=== PATIENT | female | born 1950 | race Caucasian/White ===

== ENCOUNTER 2017-04-17 06:50 | Emergency (ER) | payer MEDICARE, OTHER ==
[2017-04-17] MEDS ORDERED: Ondansetron 4 MG/2 ML SDV IVPUSH ONE (07:41)
--- NOTE | 2017-04-17 07:42 | EDM.PDOC ---
ED HPI GENERAL MEDICAL PROBLEM - General Chief Complaint: Abdominal Pain Stated Complaint: MID STOMACH PAIN Time Seen by Provider: 04/17/17 07:42 Source of Information: Reports: Patient History Limitations: Reports: No Limitations - History of Present Illness INITIAL COMMENTS - FREE TEXT/NARRATIVE: pt woke up this am with very sharp severe pain in the epigastric and rt upper abdoman. She did not vomit but she does feel nauseated at this time. She has had a concern about her gb in the past. She does do alot of belching after eating. Onset: Today, Other ( started early this am. ) Duration: Hour(s): Location: Reports: Abdomen Associated Symptoms: Reports: Nausea/Vomiting, Other ( burning epigastric pain) abdominal Pain Score (Numeric/FACES): 4 - Related Data Allergies Allergy/AdvReac Type Severity Reaction Status Date / Time hydroxyzine HCl Allergy Unknown Verified 04/17/17 07:09 [From Vistaril] hydroxyzine pamoate Allergy Unknown Verified 04/17/17 07:09 [From Vistaril] meperidine HCl [From Demerol] Allergy Unknown Verified 04/17/17 07:09 morphine Allergy Unknown Verified 04/17/17 07:09 pentazocine [From Talwin] Allergy Anxiety Verified 04/17/17 07:09 novacaine Allergy Unknown Uncoded 04/17/17 07:09 Home Meds: Home Meds Alprazolam 2.5 mg PO TID PRN 05/16/13 [History] Folic Acid 4 mg PO DAILY 05/16/13 [History] Methotrexate Sodium 0.6 mg PO WEEKLY 05/16/13 [History] Metoprolol Tartrate 150 mg PO DAILY 05/16/13 [History] Mometasone Furoate 1 applic TOP DAILY 05/16/13 [History] Aspirin 81 mg PO DAILY 04/17/17 [History] Cholecalciferol (Vitamin D3) [Vitamin D3] 2,000 unit PO DAILY 04/17/17 [History] busPIRone [Buspar] 10 mg PO BID 04/17/17 [History] Past Medical History HEENT History: Reports: Impaired Vision Cardiovascular History: Reports: Hypertension Gastrointestinal History: Reports: Other (See Below) Other Gastrointestinal History: gassy Musculoskeletal History: Reports: Arthritis, RA Neurological History: Reports: Migraines Other Neuro History: anxiety Psychiatric History: Reports: Anxiety Immunologic History: Reports: Immunosuppression Dermatologic History: Reports: Other (See Below) Other Dermatologic History: rosacea - Infectious Disease History Infectious Disease History: Reports: Chicken Pox, Measles, Mumps - Past Surgical History GI Surgical History: Reports: Appendectomy Social & Family History - Family History Family Medical History: Noncontributory Cardiac: Reports: Other (See Below) Other Cardiac Family History: rapid heart beat repaired in sister - takes medicine for it - Tobacco Use Smoking Status *Q: Never Smoker Years of Tobacco use: 5 Used Tobacco, but Quit: Yes Month Tobacco Last Used: 1978 Second Hand Smoke Exposure: No - Caffeine Use Caffeine Use: Reports: None - Recreational Drug Use Recreational Drug Use: No ED ROS GENERAL - Review of Systems Review Of Systems: See Below Constitutional: Reports: No Symptoms HEENT: Reports: No Symptoms Respiratory: Reports: No Symptoms Cardiovascular: Reports: No Symptoms Endocrine: Reports: No Symptoms GI/Abdominal: Reports: Abdominal Pain, Other (Pt has pain in the epigastric area. ) : Reports: No Symptoms Musculoskeletal: Reports: No Symptoms Skin: Reports: No Symptoms Neurological: Reports: No Symptoms ED EXAM, GI/ABD - Physical Exam Exam: See Below Text/Narrative:: pt arrived very tender in the epigastric area. She developed acute pain early this am. She was very nauseated but she did not vomit. She has been doing alot ogf belching after eating. Exam Limited By: No Limitations General Appearance: Alert, Anxious Ears: Normal TMs Nose: Normal Inspection Throat/Mouth: Normal Inspection Head: Atraumatic Neck: Normal Inspection Respiratory/Chest: No Respiratory Distress Cardiovascular: Regular Rate, Rhythm GI/Abdominal Exam: Soft, Tender, Other (pt is tender in the epigastric area. ) (Female) Exam: Deferred Rectal (Female) Exam: Deferred Back Exam: Normal Inspection Extremities: Normal Inspection Neurological: Alert, Oriented, Normal Cognition Course - Vital Signs Last Recorded V/S: Last Vital Signs Temp 36.2 C 04/17/17 07:14 Pulse 60 04/17/17 10:29 Resp 12 04/17/17 10:29 BP 116/56 L 04/17/17 10:29 Pulse Ox 98 04/17/17 10:29 - Orders/Labs/Meds Orders: Active Orders 24 hr Category Date Time Status EKG Documentation Completion [RC] ASDIRECTED Care 04/17/17 07:41 Active Sodium Chloride 0.9% [Normal Saline] 1,000 ml Med 04/17/17 07:45 Active IV ASDIRECTED EKG 12 Lead [EK] Routine Ther 04/17/17 07:41 Ordered Medication Orders Sodium Chloride (Normal Saline) 1,000 mls @ 999 mls/hr IV ASDIRECTED SHILPA Last Admin: 04/17/17 08:28 Dose: 999 mls/hr Labs: Laboratory Tests 04/17/17 04/17/17 04/17/17 Range/Units 07:45 07:45 07:45 WBC 6.0 (4.5-11.0) K/uL RBC 4.52 (3.30-5.50) M/uL Hgb 13.1 (12.0-15.0) g/dL Hct 40.3 (36.0-48.0) % MCV 89 (80-98) fL MCH 29 (27-31) pg MCHC 33 (32-36) % Plt Count 167 (150-400) K/uL Neut % (Auto) 79 H (36-66) % Lymph % (Auto) 13 L (24-44) % [place] % (Auto) 7 H (2-6) % Eos % (Auto) 1 L (2-4) % Baso % (Auto) 0 (0-1) % Sodium 142 (140-148) mmol/L Potassium 3.7 (3.6-5.2) mmol/L Chloride 107 (100-108) mmol/L Carbon Dioxide 27 (21-32) mmol/L Anion Gap 8.1 (5.0-14.0) mmol/L BUN 17 (7-18) mg/dL Creatinine 0.8 (0.6-1.0) mg/dL Est Cr Clr Drug Dosing 56.45 mL/min Estimated GFR (MDRD) > 60 (>60) Glucose 105 (74-106) mg/dL Calcium 8.9 (8.5-10.1) mg/dL Total Bilirubin 0.4 (0.2-1.0) mg/dL AST 19 (15-37) U/L ALT 25 (12-78) U/L Alkaline Phosphatase 70 (46-116) U/L Troponin I < 0.017 (0.000-0.056) ng/mL Total Protein 6.6 (6.4-8.2) g/dL Albumin 3.4 (3.4-5.0) g/dL Globulin 3.2 (2.3-3.5) g/dL Albumin/Globulin Ratio 1.1 L (1.2-2.2) Lipase 83 (73-393) U/L Urine Color Urine Appearance Urine pH (4.5-8.0) Ur Specific [place] (1.008-1.030) Urine Protein (NEGATIVE) mg/dL Urine Glucose (UA) (NEGATIVE) mg/dL Urine Ketones (NEGATIVE) mg/dL Urine Occult Blood (NEGATIVE) Urine Nitrite (NEGATIVE) Urine Bilirubin (NEGATIVE) Urine Urobilinogen (NORMAL) mg/dL Ur Leukocyte Esterase (NEGATIVE) Urine RBC (0-5) Urine WBC (0-5) Ur Epithelial Cells Amorphous Sediment Urine Bacteria Urine Mucus 04/17/17 Range/Units 08:22 WBC (4.5-11.0) K/uL RBC (3.30-5.50) M/uL Hgb (12.0-15.0) g/dL Hct (36.0-48.0) % MCV (80-98) fL MCH (27-31) pg MCHC (32-36) % Plt Count (150-400) K/uL Neut % (Auto) (36-66) % Lymph % (Auto) (24-44) % [place] % (Auto) (2-6) % Eos % (Auto) (2-4) % Baso % (Auto) (0-1) % Sodium (140-148) mmol/L Potassium (3.6-5.2) mmol/L Chloride (100-108) mmol/L Carbon Dioxide (21-32) mmol/L Anion Gap (5.0-14.0) mmol/L BUN (7-18) mg/dL Creatinine (0.6-1.0) mg/dL Est Cr Clr Drug Dosing mL/min Estimated GFR (MDRD) (>60) Glucose (74-106) mg/dL Calcium (8.5-10.1) mg/dL Total Bilirubin (0.2-1.0) mg/dL AST (15-37) U/L ALT (12-78) U/L Alkaline Phosphatase (46-116) U/L Troponin I (0.000-0.056) ng/mL Total Protein (6.4-8.2) g/dL Albumin (3.4-5.0) g/dL Globulin (2.3-3.5) g/dL Albumin/Globulin Ratio (1.2-2.2) Lipase (73-393) U/L Urine Color Yellow Urine Appearance Clear Urine pH 5.0 (4.5-8.0) Ur Specific [place] 1.005 L (1.008-1.030) Urine Protein Negative (NEGATIVE) mg/dL Urine Glucose (UA) Normal (NEGATIVE) mg/dL Urine Ketones Negative (NEGATIVE) mg/dL Urine Occult Blood Negative (NEGATIVE) Urine Nitrite Negative (NEGATIVE) Urine Bilirubin Negative (NEGATIVE) Urine Urobilinogen Normal (NORMAL) mg/dL Ur Leukocyte Esterase Negative (NEGATIVE) Urine RBC Not seen (0-5) Urine WBC Not seen (0-5) Ur Epithelial Cells Rare Amorphous Sediment Not seen Urine Bacteria Not seen Urine Mucus Not seen Meds: Medications Generic Name Dose Route Start Last Admin Trade Name Freq PRN Reason Stop Dose Admin Sodium Chloride 1,000 mls @ 999 mls/hr 04/17/17 07:45 04/17/17 08:28 Normal Saline IV 999 mls/hr ASDIRECTED SHILPA Administration Discontinued Medications Generic Name Dose Route Start Last Admin Trade Name Freq PRN Reason Stop Dose Admin Al Hydroxide/Mg Hydroxide 15 0 ml 04/17/17 09:21 04/17/17 09:36 ml/ Lidocaine HCl 15 ml PO 04/17/17 09:22 15 ml ONETIME ONE Administration Ondansetron HCl 4 mg 04/17/17 07:41 04/17/17 08:29 Zofran IVPUSH 04/17/17 07:42 4 mg ONETIME ONE Administration Pantoprazole Sodium 40 mg 04/17/17 10:05 04/17/17 10:27 Protonix Iv IVPUSH 04/17/17 10:06 40 mg ONETIME ONE Administration - Re-Assessments/Exams Free Text/Narrative Re-Assessment/Exam: 04/17/17 10:39 pt was given protonix and a gi cocktail. Her pain is down to a 1 or 2. She had a us of her gb which was neg. Her lab work looked good. Departure - Departure Time of Disposition: 10:40 Disposition: Home, Self-Care 01 Condition: Fair Clinical Impression: GERD (gastroesophageal reflux disease) - Discharge Information Referrals: Holly Ponce CNM [Primary Care Provider] - Forms: ED Department Discharge Care Plan Goals: rtc for a gastro, protonix 20 mg bid for the next week, avoid eating late at nite. rtc if further severe symptoms. - My Orders Last 24 Hours: My Active Orders 04/17/17 07:41 EKG Documentation Completion [RC] ASDIRECTED EKG 12 Lead [EK] Routine 04/17/17 07:45 Sodium Chloride 0.9% [Normal Saline] 1,000 ml IV ASDIRECTED - Assessment/Plan Last 24 Hours: My Active Orders 04/17/17 07:41 EKG Documentation Completion [RC] ASDIRECTED EKG 12 Lead [EK] Routine 04/17/17 07:45 Sodium Chloride 0.9% [Normal Saline] 1,000 ml IV ASDIRECTED
[2017-04-17] MEDS ORDERED: Sodium Chloride 0.9% 1,000 ML IV SCH (07:45)
[2017-04-17] MEDS ORDERED: Alum Hydrox/Mag Hydrox/Simeth 15 ML, Lidocaine 2% 15 ML PO ONE ×2 (09:21)
[2017-04-17] MEDS ORDERED: Pantoprazole 40 MG Vial IVPUSH ONE (10:05)
--- NOTE | 2017-04-17 10:23 | US ---
Ultrasound RUQ There are 2 cysts involving the right lobe the liver. The largest measures 2.4 cm in diameter. No avelino id lesions. The gallbladder demonstrates no stones or inflammation. There is no pain with palpation o verlying the gallbladder. The common bile duct measures within normal limits measuring 3 mm. The visu alized portions of the pancreas are unremarkable. The right kidney is normal in size. There is no hyd ronephrosis. There are no stones seen. The abdominal aorta and IVC are unremarkable. Impression: 1. Hepatic cysts. 2. No acute findings.
[2017-04-17 10:30] VITALS: BP 116/56
== END 2017-04-17 11:02 | disposition home or self-care (01) ==
LOC: JP.ED 06:50
DX: K21.9 Gastro-esophageal reflux disease without esophagitis (principal); I10 Essential (primary) hypertension; Z88.8 Allergy status to other drugs, medicaments and biological substances; Z88.5 Allergy status to narcotic agent; Z79.899 Other long term (current) drug therapy
CPT/HCPCS: 36415; 76705; 80053; 81001; 83690; 84484; 85025; 93005; 96361; 96374; 96375; 99285; A9270; C9113; J2405; J7040; 93010

== ENCOUNTER 2017-04-21 08:06 | Day surgery (SDC) | payer MEDICARE, OTHER ==
[2017-04-21] MEDS ORDERED: Propofol 200 MG/20 ML SDV ONE (08:43)
[2017-04-21] MEDS ORDERED: Midazolam 1 MG/ML 2 ML SDV ONE (08:43)
[2017-04-21] MEDS ORDERED: fentaNYL 100 MCG/2 ML SDV ONE (08:43)
[2017-04-21] MEDS ORDERED: Sodium Chloride 0.9% 1,000 ML IV SCH (09:00)
[2017-04-21 10:58] VITALS: BP 115/47
--- NOTE | 2017-04-24 09:18 | OR ---
DATE OF PROCEDURE: 04/21/2017 PROCEDURE: EGD. FINDINGS: 1. Inflammation at the GE junction consistent with reflux disease. 2. Inflammation of the distal antrum consistent with gastritis. 3. Biopsies of #1 and #2. 4. No evidence of old or new blood. COMPLICATIONS: None. ORTHOPEDICS PEDIATRIC PHYSICIAN: None. ANESTHESIA: MAC. RISKS: Risks, benefits, alternatives, and limitations including, but not limited to infection, bleeding, and perforation were explained to the patient, they wished to proceed. PROCEDURE IN DETAIL: The patient was placed in a left lateral decubitus position. The EGD scope was introduced and advanced atraumatically to the second part of the duodenum. The scope was brought back and retroflexed. There was a very small hiatal hernia. In the gastric antrum, there was inflammation consistent with reflux disease. This was biopsied multiple times using cold biopsy forceps. The GE junction also showed inflammation and a tongue-like appearance consistent with reflux. This was biopsied multiple times using cold biopsy forceps. The esophagus was normal, inflammation, very mild gastritis, mild reflux, but no definitive etiology of any bleeding or explanation for pain. The patient tolerated the procedure well. Deng Cueto MD /[id number]
== END 2017-04-21 11:52 | disposition home or self-care (01) ==
LOC: JP.SDS 08:06
PROVIDERS: ATTEND Surgery
DX: K29.70 Gastritis, unspecified, without bleeding (principal); K21.0 Gastro-esophageal reflux disease with esophagitis; K44.9 Diaphragmatic hernia without obstruction or gangrene; I10 Essential (primary) hypertension; Z88.8 Allergy status to other drugs, medicaments and biological substances
CPT/HCPCS: 43239; 88305; J2250; J2704; J3010; J7040; J7030

== ENCOUNTER 2017-10-19 22:54 | Emergency (ER) | payer MEDICARE, OTHER ==
--- NOTE | 2017-10-19 23:48 | EDM.PDOC ---
ED HPI GENERAL MEDICAL PROBLEM - General Chief Complaint: Lower Extremity Injury/Pain Stated Complaint: stubbed toe and ripped off nail on left foot Time Seen by Provider: 10/19/17 23:21 Source of Information: Reports: Patient History Limitations: Reports: No Limitations - History of Present Illness INITIAL COMMENTS - FREE TEXT/NARRATIVE: Left second toe injury.. This is a 67-year-old female presents emergency room after tripping or slipping in her home meds stubbed her toe which caused an injury to the toenail. Denies any other concerns Onset: Sudden Duration: Hour(s): Location: Reports: Other (Toenail injury) Quality: Reports: Ache Severity: Mild Improves with: Reports: None Worsens with: Reports: Movement Context: Reports: Other (Fall or tripping home) Associated Symptoms: Reports: No Other Symptoms Treatments ENOLOGIST: Reports: Dressing(s) denies pain Pain Score (Numeric/FACES): 0 - Related Data Allergies Allergy/AdvReac Type Severity Reaction Status Date / Time amoxicillin Allergy Abdominal Verified 10/19/17 23:53 Cramps hydroxyzine HCl Allergy Unknown Verified 10/19/17 23:51 [From Vistaril] hydroxyzine pamoate Allergy Unknown Verified 10/19/17 23:51 [From Vistaril] meperidine HCl [From Demerol] Allergy Unknown Verified 10/19/17 23:51 metronidazole Allergy Cannot Verified 10/19/17 23:51 Remember morphine Allergy Unknown Verified 10/19/17 23:51 procaine [From Novocain] Allergy Cannot Verified 10/19/17 23:51 Remember pentazocine [From Talwin] AdvReac Anxiety Verified 10/19/17 23:51 Home Meds: Home Meds Alprazolam 2.5 mg PO TID PRN 05/16/13 [History] Folic Acid 400 mg PO DAILY 05/16/13 [History] Methotrexate Sodium 0.6 mg PO WEEKLY 05/16/13 [History] Metoprolol Tartrate 100 mg PO DAILY 05/16/13 [History] Mometasone Furoate 1 applic TOP DAILY 05/16/13 [History] Aspirin 81 mg PO DAILY 04/17/17 [History] Cholecalciferol (Vitamin D3) [Vitamin D3] 2,000 unit PO DAILY 04/17/17 [History] busPIRone [Buspar] 10 mg PO BID 04/17/17 [History] Montelukast [Singulair] 10 mg PO DAILY 04/18/17 [History] Metoprolol Tartrate 50 mg PO BEDTIME 04/21/17 [History] Past Medical History HEENT History: Reports: Impaired Vision Cardiovascular History: Reports: Hypertension Respiratory History: Reports: Pneumonia, Recurrent Gastrointestinal History: Reports: Other (See Below) Other Gastrointestinal History: gassy [employer]IT[employer] History: Reports: Musculoskeletal History: Reports: Arthritis, RA Neurological History: Reports: Migraines Other Neuro History: anxiety Psychiatric History: Reports: Anxiety Immunologic History: Reports: Immunosuppression Dermatologic History: Reports: Other (See Below) Other Dermatologic History: rosacea - Infectious Disease History Infectious Disease History: Reports: Chicken Pox, Measles, Mumps - Past Surgical History GI Surgical History: Reports: Appendectomy Social & Family History - Family History Family Medical History: Noncontributory Cardiac: Reports: Other (See Below) Other Cardiac Family History: rapid heart beat repaired in sister - takes medicine for it - Caffeine Use Caffeine Use: Reports: None Review of Systems - Review of Systems Review Of Systems: See Below Constitutional: Reports: No Symptoms Musculoskeletal: Reports: Foot Pain (Left second toe injury/pain) Skin: Reports: Other (Toenail injury) Neurological: Reports: No Symptoms Psychiatric: Reports: No Symptoms ED EXAM, GENERAL - Physical Exam Exam: See Below Exam Limited By: No Limitations General Appearance: Alert, WD/WN, No Apparent Distress Extremities: Other (Left second toe injury, partial avulsion of the toenail, toe range of motion intact without pain or tenderness.) Neurological: No Motor/Sensory Deficits Psychiatric: Normal Affect, Normal Mood Skin Exam: Other (Left second toenail with bleeding at base of the nail avulsion. this has been controlled with bandage) Lymphatic: No Adenopathy Course - Vital Signs Last Recorded V/S: Last Vital Signs Temp 35.7 C 10/19/17 23:54 Pulse 58 L 10/19/17 23:54 Resp 14 10/19/17 23:54 BP 157/65 H 10/19/17 23:54 Pulse Ox 95 10/19/17 23:54 - Orders/Labs/Meds Meds: Medications Discontinued Medications Generic Name Dose Route Start Last Admin Trade Name Freq PRN Reason Stop Dose Admin Bacitracin 1 dose 10/20/17 00:31 10/20/17 00:41 Bacitracin Oint 1 Gm TOP 10/20/17 00:32 1 dose ONETIME ONE Administration - Re-Assessments/Exams Free Text/Narrative Re-Assessment/Exam: 10/20/17 01:09 patient declines x-rays at this time, will give Keflex 500 by mouth twice a day for infection prevention as patient is immune compromised due to her rheumatoid arthritis. Bandage applied discussed wound care, signs and symptoms of infection, and to follow-up with primary care for recheck. Patient agrees with plan of care Departure - Departure Time of Disposition: 00:29 Disposition: Home, Self-Care 01 Condition: Good Clinical Impression: She Nail avulsion of toe Qualifiers: Encounter type: initial encounter Qualified Code(s): S91.209A - Unspecified open wound of unspecified toe(s) with damage to nail, initial encounter - Discharge Information *PRESCRIPTION DRUG MONITORING PROGRAM REVIEWED*: Yes *COPY OF PRESCRIPTION DRUG MONITORING REPORT IN PATIENT JOSR: Yes Instructions: Nail Bed Injury Referrals: Holly Ponce CNM [Primary Care Provider] - Forms: ED Department Discharge Care Plan Goals: Nail Avulsion -take Keflex 500mg one po in morning and evening til gone -take Diflucon 150mg now and repeat in 7 days apply bacitracin ointment to toe one to two times a day follow up in Primary Care for recheck return to ER or Urgent Care for any signs of infection or not improved - Problem List & Annotations (1) Nail avulsion of toe SNOMED Code(s): 771001723 Code(s): S91.209A - UNSP OPEN WOUND OF UNSP TOE(S) W DAMAGE TO NAIL, INIT ENCNTR Status: Acute Priority: High Qualifiers: Encounter type: initial encounter Qualified Code(s): S91.209A - Unspecified open wound of unspecified toe(s) with damage to nail, initial encounter - Problem List Review Problem List Initiated/Reviewed/Updated: Yes - Assessment/Plan Plan: Nail Avulsion -take Keflex 500mg one po in morning and evening til gone -take Diflucon 150mg now and repeat in 7 days apply bacitracin ointment to toe one to two times a day follow up in Primary Care for recheck return to ER or Urgent Care for any signs of infection or not improved
[2017-10-19 23:55] VITALS: BP 157/65
[2017-10-20] MEDS ORDERED: Bacitracin Oint 1 GM U/D Packet TOP ONE (00:31)
[2017-10-20] MEDS ORDERED: Bacitracin Oint 1 GM U/D Packet ONE (00:35)
== END 2017-10-20 00:49 | disposition home or self-care (01) ==
LOC: JP.ED 22:54
DX: S91.205A Unspecified open wound of left lesser toe(s) with damage to nail, initial encounter (principal); I10 Essential (primary) hypertension; M06.9 Rheumatoid arthritis, unspecified; Z88.1 Allergy status to other antibiotic agents; Z88.5 Allergy status to narcotic agent; W18.40XA Slipping, tripping and stumbling without falling, unspecified, initial encounter
CPT/HCPCS: 99283

== ENCOUNTER 2018-06-04 14:17 | Emergency (ER) | payer MEDICARE, OTHER ==
--- NOTE | 2018-06-04 15:26 | EDM.PDOC ---
ED HPI GENERAL MEDICAL PROBLEM - General Chief Complaint: Abdominal Pain Stated Complaint: LOWER ABD PAIN Time Seen by Provider: 06/04/18 15:26 Source of Information: Reports: Patient History Limitations: Reports: No Limitations - History of Present Illness INITIAL COMMENTS - FREE TEXT/NARRATIVE: pt arrived with pain in the rt lower abdoman. In Nov she had a partial hysterectomy and a bladder suspension. She has not had dsyuria. She has been on the constipated side. Onset: Today, Sudden Duration: Hour(s): Location: Reports: Abdomen Associated Symptoms: Reports: No Other Symptoms lower abdominal Pain Score (Numeric/FACES): 8 - Related Data Allergies Allergy/AdvReac Type Severity Reaction Status Date / Time amoxicillin Allergy Abdominal Verified 06/04/18 14:57 Cramps hydroxyzine HCl Allergy Unknown Verified 06/04/18 14:57 [From Vistaril] hydroxyzine pamoate Allergy Unknown Verified 06/04/18 14:57 [From Vistaril] meperidine HCl [From Demerol] Allergy Unknown Verified 06/04/18 14:57 metronidazole Allergy Cannot Verified 06/04/18 14:57 Remember morphine Allergy Unknown Verified 06/04/18 14:57 procaine [From Novocain] Allergy Cannot Verified 06/04/18 14:57 Remember pentazocine [From Talwin] AdvReac Anxiety Verified 06/04/18 14:57 Home Meds: Home Meds Alprazolam 2.5 mg PO TID PRN 05/16/13 [History] Folic Acid 400 mg PO DAILY 05/16/13 [History] Methotrexate Sodium 0.6 mg PO WEEKLY 05/16/13 [History] Mometasone Furoate 1 applic TOP DAILY 05/16/13 [History] Aspirin 81 mg PO DAILY 04/17/17 [History] Cholecalciferol (Vitamin D3) [Vitamin D3] 2,000 unit PO DAILY 04/17/17 [History] busPIRone [Buspar] 10 mg PO BID 04/17/17 [History] Montelukast [Singulair] 10 mg PO DAILY 04/18/17 [History] Metoprolol Tartrate 100 mg PO DAILY 04/21/17 [History] Tiotropium [Spiriva] 18 mcg INH DAILY 06/04/18 [History] Past Medical History HEENT History: Reports: Impaired Vision Cardiovascular History: Reports: Hypertension Respiratory History: Reports: Pneumonia, Recurrent Gastrointestinal History: Reports: GERD, Other (See Below) Other Gastrointestinal History: gassy 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: Musculoskeletal History: Reports: Arthritis, RA Other Musculoskeletal History: toenail removed July 2016 left foot 2nd toe Neurological History: Reports: Migraines Other Neuro History: anxiety Psychiatric History: Reports: Anxiety, Panic Attack Immunologic History: Reports: Immunosuppression Dermatologic History: Reports: Other (See Below) Other Dermatologic History: rosacea - Infectious Disease History Infectious Disease History: Reports: Chicken Pox, Measles, Mumps - Past Surgical History GI Surgical History: Reports: Appendectomy Female Surgical History: Reports: Hysterectomy, Other (See Below) Other Female Surgeries/Procedures: partial hysterectomy and bladder sling Musculoskeletal Surgical History: Reports: None Social & Family History - Family History Family Medical History: Noncontributory Cardiac: Reports: Other (See Below) Other Cardiac Family History: rapid heart beat repaired in sister - takes medicine for it - Tobacco Use Smoking Status *Q: Never Smoker - Caffeine Use Caffeine Use: Reports: None - Recreational Drug Use Recreational Drug Use: No ED ROS GENERAL - Review of Systems Review Of Systems: See Below Constitutional: Reports: No Symptoms HEENT: Reports: No Symptoms Respiratory: Reports: No Symptoms Cardiovascular: Reports: No Symptoms Endocrine: Reports: No Symptoms GI/Abdominal: Reports: Abdominal Pain, Other (pt had a sudden onset of a severe episode of rt sided abdomanal pin. She has been on the constipated side. She did not vomit. ) : Reports: No Symptoms Musculoskeletal: Reports: No Symptoms Skin: Reports: No Symptoms Neurological: Reports: No Symptoms ED EXAM, RENAL/ - Physical Exam Exam: See Below Text/Narrative:: pt had an episode of very severe pain in the rt lower abdoman. She has not vomited . The pain is muich better now then it was earlier. Exam Limited By: No Limitations General Appearance: Alert, Anxious, Moderate Distress Ears: Normal TMs Nose: Normal Inspection Throat/Mouth: Normal Inspection Head: Atraumatic Neck: Normal Inspection Respiratory/Chest: No Respiratory Distress Cardiovascular: Regular Rate, Rhythm GI/Abdominal: Other (mild tenderness) (Female) Exam: Deferred Rectal (Female) Exam: Deferred Back Exam: CVA Tenderness (L) Extremities: Normal Inspection Neurological: Alert, Oriented, Normal Cognition Course - Vital Signs Last Recorded V/S: Last Vital Signs Temp 35.5 C 06/04/18 14:51 Pulse 88 06/04/18 17:31 Resp 12 06/04/18 17:31 BP 142/61 H 06/04/18 17:31 Pulse Ox 96 06/04/18 17:31 - Orders/Labs/Meds Labs: Laboratory Tests 06/04/18 06/04/18 06/04/18 Range/Units 15:25 15:33 15:33 WBC 4.1 L (4.5-11.0) K/uL RBC 4.19 (3.30-5.50) M/uL Hgb 12.2 (12.0-15.0) g/dL Hct 36.9 (36.0-48.0) % MCV 88 (80-98) fL MCH 29 (27-31) pg MCHC 33 (32-36) % Plt Count 166 (150-400) K/uL Neut % (Auto) 63 (36-66) % Lymph % (Auto) 22 L (24-44) % [place] % (Auto) 11 H (2-6) % Eos % (Auto) 3 (2-4) % Baso % (Auto) 1 (0-1) % Sodium 142 (140-148) mmol/L Potassium 3.6 (3.6-5.2) mmol/L Chloride 106 (100-108) mmol/L Carbon Dioxide 27 (21-32) mmol/L Anion Gap 9.5 (5.0-14.0) mmol/L BUN 11 (7-18) mg/dL Creatinine 0.7 (0.6-1.0) mg/dL Est Cr Clr Drug Dosing 63.63 mL/min Estimated GFR (MDRD) > 60 (>60) Glucose 89 (74-106) mg/dL Calcium 8.9 (8.5-10.1) mg/dL Total Bilirubin 0.5 (0.2-1.0) mg/dL AST 21 (15-37) U/L ALT 29 (12-78) U/L Alkaline Phosphatase 74 (46-116) U/L C-Reactive Protein (0.0-0.3) mg/dL Total Protein 6.7 (6.4-8.2) g/dL Albumin 3.2 L (3.4-5.0) g/dL Globulin 3.5 (2.3-3.5) g/dL Albumin/Globulin Ratio 0.9 L (1.2-2.2) Urine Color Yellow Urine Appearance Clear Urine pH 7.0 (4.5-8.0) Ur Specific [place] 1.005 L (1.008-1.030) Urine Protein Negative (NEGATIVE) mg/dL Urine Glucose (UA) Normal (NEGATIVE) mg/dL Urine Ketones Negative (NEGATIVE) mg/dL Urine Occult Blood Negative (NEGATIVE) Urine Nitrite Negative (NEGATIVE) Urine Bilirubin Negative (NEGATIVE) Urine Urobilinogen Normal (NORMAL) mg/dL Ur Leukocyte Esterase Negative (NEGATIVE) Urine RBC 0-5 (0-5) Urine WBC 0-5 (0-5) Ur Epithelial Cells Rare Amorphous Sediment Rare Urine Bacteria Not seen Urine Mucus Not seen 06/04/18 Range/Units 15:33 WBC (4.5-11.0) K/uL RBC (3.30-5.50) M/uL Hgb (12.0-15.0) g/dL Hct (36.0-48.0) % MCV (80-98) fL MCH (27-31) pg MCHC (32-36) % Plt Count (150-400) K/uL Neut % (Auto) (36-66) % Lymph % (Auto) (24-44) % [place] % (Auto) (2-6) % Eos % (Auto) (2-4) % Baso % (Auto) (0-1) % Sodium (140-148) mmol/L Potassium (3.6-5.2) mmol/L Chloride (100-108) mmol/L Carbon Dioxide (21-32) mmol/L Anion Gap (5.0-14.0) mmol/L BUN (7-18) mg/dL Creatinine (0.6-1.0) mg/dL Est Cr Clr Drug Dosing mL/min Estimated GFR (MDRD) (>60) Glucose (74-106) mg/dL Calcium (8.5-10.1) mg/dL Total Bilirubin (0.2-1.0) mg/dL AST (15-37) U/L ALT (12-78) U/L Alkaline Phosphatase (46-116) U/L C-Reactive Protein 0.27 (0.0-0.3) mg/dL Total Protein (6.4-8.2) g/dL Albumin (3.4-5.0) g/dL Globulin (2.3-3.5) g/dL Albumin/Globulin Ratio (1.2-2.2) Urine Color Urine Appearance Urine pH (4.5-8.0) Ur Specific [place] (1.008-1.030) Urine Protein (NEGATIVE) mg/dL Urine Glucose (UA) (NEGATIVE) mg/dL Urine Ketones (NEGATIVE) mg/dL Urine Occult Blood (NEGATIVE) Urine Nitrite (NEGATIVE) Urine Bilirubin (NEGATIVE) Urine Urobilinogen (NORMAL) mg/dL Ur Leukocyte Esterase (NEGATIVE) Urine RBC (0-5) Urine WBC (0-5) Ur Epithelial Cells Amorphous Sediment Urine Bacteria Urine Mucus Meds: Medications Discontinued Medications Generic Name Dose Route Start Last Admin Trade Name Freq PRN Reason Stop Dose Admin Sodium Chloride 80 mls @ 3 mls/sec 06/04/18 17:45 Normal Saline IV ASDIRECTED ON LICENSE OF [facility] Iopamidol 100 ml 06/04/18 17:45 Isovue-300 (61%) IV . DIRECTED ON LICENSE OF [facility] Magnesium Citrate 296 ml 06/04/18 18:59 Citrate Of Magnesia PO 06/04/18 19:00 ONETIME ONE Sodium Chloride 10 ml 06/04/18 17:44 Saline Flush FLUSH ASDIRECTED PRN Keep Vein Open - Re-Assessments/Exams Free Text/Narrative Re-Assessment/Exam: 06/04/18 19:01 pt had a normal urine. Her wbc was normal. Because of how severe the pain was a cat scan of the abdoman was done which was neg except for constipation. 06/05/18 07:22 Departure - Departure Time of Disposition: 19:02 Disposition: Home, Self-Care 01 Condition: Fair Clinical Impression: Constipation - Discharge Information Instructions: Constipation, Adult, [id number] Referrals: Holly Ponce CNM [Primary Care Provider] - Forms: ED Department Discharge Care Plan Goals: drink the mag citrate now. Increase fiber in diet, eat prunes daily, use fiber gummy 3-4 daily to keep stool soft.
[2018-06-04 17:32] VITALS: BP 142/61
[2018-06-04] MEDS ORDERED: Sodium Chloride 0.9% 10 ML Syringe FLUSH PRN (17:44)
[2018-06-04] MEDS ORDERED: Sodium Chloride 0.9% 80 ML IV SCH (17:45)
[2018-06-04] MEDS ORDERED: Iopamidol 612 MG/ML 100 ML Bottle IV SCH (17:45)
--- NOTE | 2018-06-04 18:28 | CRLCT ---
Indication: Right lower quadrant pain. Technique: Multiple contiguous axial images were obtained from the lung bases through the symphysis pubis without intravenous contrast enhancement. Please note that all CT scans at this facility use dose modulation, iterative reconstruction, and/or weight-based dosing when appropriate to reduce radiation dose to as low as reasonably achievable. Comparison: None Findings: The lung bases are clear. No infiltrate, pleural effusion, or pneumothorax is identified. Heart is normal in size. No pericardial effusion is identified. Multiple hepatic cysts are identified. No intrahepatic biliary ductal dilatation is identified. The gallbladder, spleen, pancreas, adrenals are grossly normal. No hydronephrosis is identified on the left. Right hydronephrosis is identified. No renal calculus is identified. No right hydroureter is identified. No right ureteral stones are seen. In the pelvis, the urinary bladder is normal. The uterus has been removed. The small and large bowel are normal in caliber. Moderate amount of stool is identified within the colon. No free air or free fluid is identified within the abdomen or pelvis. Degenerative changes of the spine are seen. No lytic or blastic lesions are identified. Impression: Mild right hydronephrosis without evidence of renal/ureteral calculi. No hydroureter. Please note that all CT scans at this facility use dose modulation, iterative reconstruction, and/or weight-based dosing when appropriate to reduce radiation dose to as low as reasonably achievable. Dictated by Sarah Barbour MD @ Jun 04 2018 6:23PM Signed by Dr. Sarah Barbour @ Jun 04 2018 6:26PM
[2018-06-04] MEDS ORDERED: Magnesium Citrate Solution 296 ML Bottle PO ONE (18:59)
== END 2018-06-04 19:21 | disposition home or self-care (01) ==
LOC: JP.ED 14:17
DX: K59.00 Constipation, unspecified (principal); I10 Essential (primary) hypertension; F41.9 Anxiety disorder, unspecified; K21.9 Gastro-esophageal reflux disease without esophagitis; Z79.899 Other long term (current) drug therapy; Z88.8 Allergy status to other drugs, medicaments and biological substances; Z88.1 Allergy status to other antibiotic agents; Z88.5 Allergy status to narcotic agent; Z88.6 Allergy status to analgesic agent
CPT/HCPCS: 36415; 74176; 80053; 81001; 85025; 86140; 99284-25

== ENCOUNTER 2019-08-26 07:11 | Day surgery (SDC) | payer MEDICARE, OTHER ==
[2019-08-26] MEDS ORDERED: fentaNYL 100 MCG/2 ML SDV ONE (07:22)
[2019-08-26] MEDS ORDERED: Midazolam 1 MG/ML 2 ML SDV ONE (07:23)
[2019-08-26] MEDS ORDERED: Propofol 200 MG/20 ML SDV ONE (07:23)
[2019-08-26] MEDS ORDERED: Sodium Chloride 0.9% 1,000 ML IV SCH (07:45)
[2019-08-26 10:25] VITALS: BP 101/66; PULSE 54
--- NOTE | 2019-08-27 09:09 | OR ---
DATE OF PROCEDURE: 08/26/2019 SURGEON: Deng Cueto MD PROCEDURE: Colonoscopy. FINDINGS: Normal colonoscopy. PREOPERATIVE DIAGNOSIS: Screening colonoscopy. POSTOPERATIVE DIAGNOSIS: Screening colonoscopy. RISKS: Risks, benefits, alternatives, and limitations including but not limited to infection, bleeding, and perforation were explained to the patient, who wished to proceed. PROCEDURE IN DETAIL: The patient was placed in left lateral decubitus position. The colonoscope was introduced and advanced atraumatically to the ileocecal valve. A photo was taken of this. The scope was brought back through the ascending, transverse, and descending colon and retroflexed. No evidence of old or new blood. No masses. No polyps. No diverticulosis. No abnormalities on retroflexion. The patient tolerated the procedure well. Deng Cuteo MD /[id number]
== END 2019-08-26 10:28 | disposition home or self-care (01) ==
LOC: JP.SDS 07:11
PROVIDERS: ATTEND Surgery
DX: Z12.11 Encounter for screening for malignant neoplasm of colon (principal); I10 Essential (primary) hypertension; K21.9 Gastro-esophageal reflux disease without esophagitis; F41.9 Anxiety disorder, unspecified
CPT/HCPCS: G0121; J2250; J2704; J3010; J7030

== ENCOUNTER 2020-01-02 04:39 | Emergency (ER) | payer MEDICARE, OTHER ==
[2020-01-02] MEDS ORDERED: Sodium Chloride 0.9% 1,000 ML IV SCH (04:40)
[2020-01-02] MEDS ORDERED: Ketorolac 30 MG/ML SDV IVPUSH ONE (04:48)
[2020-01-02] MEDS ORDERED: LORazepam 2 MG/ML SDV IVPUSH ONE (05:02)
--- NOTE | 2020-01-02 05:08 | EDM.PDOC ---
ED HPI GENERAL MEDICAL PROBLEM - General Chief Complaint: Chest Pain Stated Complaint: MEDICAL VIA [facility] Time Seen by Provider: 01/02/20 04:50 Source of Information: Reports: Patient, EMS, Old Records History Limitations: Reports: No Limitations - History of Present Illness INITIAL COMMENTS - FREE TEXT/NARRATIVE: 69 yo female with no clear pHx of CAD presents with CP/left jaw pain since about 0345h today that awoke her from sleep. She is alone tonight with her soon to be released from a [facility]. Says she feels SOB. EMS transported and did give ASA and a single NTG that dropped her BP significantly without any relief of her pain. She denies fever or cough. Onset: Today, Sudden Onset Date: 01/02/20 Onset Time: 03:45 Duration: Minutes:, Constant Location: Reports: Chest Quality: Reports: Pressure (heaviness) Severity: Moderate Improves with: Reports: None Worsens with: Reports: None Context: Reports: Other (See HPI) Associated Symptoms: Reports: Chest Pain, Shortness of Breath. Denies: Cough, Fever/Chills Treatments WELFARE ANALYST: Reports: EKG, IV/IO, Nitroglycerin, Oxygen, Other (see below) Other Treatments WELFARE ANALYST: Zofran chest pain Pain Score (Numeric/FACES): 10 - Related Data Allergies Allergy/AdvReac Type Severity Reaction Status Date / Time amoxicillin Allergy Abdominal Verified 01/02/20 04:57 Cramps hydroxyzine HCl Allergy Unknown Verified 01/02/20 04:57 [From Vistaril] hydroxyzine pamoate Allergy Unknown Verified 01/02/20 04:57 [From Vistaril] Iodinated Contrast Media Allergy Tachycardia Verified 01/02/20 04:57 meperidine HCl [From Demerol] Allergy Unknown Verified 01/02/20 04:57 metronidazole Allergy Cannot Verified 01/02/20 04:57 Remember morphine Allergy Unknown Verified 01/02/20 04:57 procaine [From Novocain] Allergy Cannot Verified 01/02/20 04:57 Remember pentazocine [From Talwin] AdvReac Anxiety Verified 01/02/20 04:57 tape Allergy Rash Uncoded 01/02/20 04:57 Home Meds: Home Meds Cholecalciferol (Vitamin D3) [Vitamin D3] 4,000 unit PO DAILY 04/17/17 [History] busPIRone [Buspar] 10 mg PO BID 04/17/17 [History] Montelukast [Singulair] 10 mg PO BEDTIME 04/18/17 [History] Tiotropium [Spiriva] 1 cap INH DAILY 06/04/18 [History] Pantoprazole [ProTONIX] 20 mg PO DAILY 10/18/18 [History] Methotrexate [Xatmep] 10 ml PO Q7D 11/26/18 [History] Mometasone Furoate [Elocon] 1 applic TP BID 11/26/18 [History] Acetaminophen [Tylenol Extra Strength] 1,000 mg PO Q8H PRN 08/23/19 [History] Folic Acid 800 mcg PO DAILY 08/23/19 [History] Metoprolol Tartrate [Lopressor] 100 mg PO DAILY 08/23/19 [History] cycloSPORINE [Restasis] 1 drop OP BID 08/23/19 [History] prednisoLONE acetate [Pred Forte 1% Ophth Susp] 1 drop EYERT BID 08/23/19 [History] Past Medical History HEENT History: Reports: Impaired Vision Cardiovascular History: Reports: Arrhythmia, Hypertension Other Cardiovascular History: history of atypical chest pain Respiratory History: Reports: Pneumonia, Recurrent, Other (See Below) Other Respiratory History: pulmonary nodule Gastrointestinal History: Reports: GERD Other Gastrointestinal History: gassy Genitourinary History: Reports: None 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 SI pain Neurological History: Reports: Migraines Other Neuro History: anxiety Psychiatric History: Reports: Anxiety, Panic Attack Endocrine/Metabolic History: Reports: Osteoporosis, Vitamin D Deficiency Immunologic History: Reports: Immunosuppression Dermatologic History: Reports: Other (See Below) Other Dermatologic History: rosacea - Infectious Disease History Infectious Disease History: Reports: Chicken Pox - Past Surgical History HEENT Surgical History: Reports: None Cardiovascular Surgical History: Reports: None Respiratory Surgical History: Reports: None GI Surgical History: Reports: Appendectomy, Colonoscopy, EGD Female Surgical History: Reports: Breast Biopsy, Hysterectomy, Other (See Below) Other Female Surgeries/Procedures: partial hysterectomy and bladder sling Endocrine Surgical History: Reports: None Neurological Surgical History: Reports: Laminectomy Musculoskeletal Surgical History: Reports: None Dermatological Surgical History: Reports: None Social & Family History - Family History Family Medical History: Noncontributory Cardiac: Reports: Other (See Below) Other Cardiac Family History: rapid heart beat repaired in sister - takes medicine for it - Caffeine Use Caffeine Use: Reports: Tea ED ROS GENERAL - Review of Systems Review Of Systems: See Below Constitutional: Reports: No Symptoms HEENT: Reports: No Symptoms Respiratory: Reports: Shortness of Breath. Denies: Wheezing, Cough, Sputum, Hemoptysis Cardiovascular: Reports: Chest Pain, Lightheadedness (only after the NTG). Denies: No Symptoms, Edema GI/Abdominal: Reports: No Symptoms : Reports: No Symptoms Musculoskeletal: Reports: No Symptoms Skin: Reports: No Symptoms Neurological: Reports: No Symptoms Psychiatric: Reports: Other (has a hx of anxiety, says this is different) ED EXAM, GENERAL - Physical Exam Exam: See Below Exam Limited By: No Limitations General Appearance: Alert, WD/WN, No Apparent Distress, Thin Eye Exam: Bilateral Eye: Normal Inspection Ears: Normal External Exam, Normal Canal, Hearing Grossly Normal Ear Exam: Bilateral Ear: Auricle Normal, Canal Normal Nose: Normal Inspection, No Blood Throat/Mouth: Normal Inspection, Normal Lips, Normal Oropharynx, Normal Voice, No Airway Compromise Head: Atraumatic, Normocephalic Neck: Normal Inspection Respiratory/Chest: No Respiratory Distress, No Accessory Muscle Use, Decreased Breath Sounds, Crackles (diffusely bilaterally) Cardiovascular: Regular Rate, Rhythm, No Edema GI/Abdominal: Normal Bowel Sounds, Soft, Non-Tender, No Distention Back Exam: Normal Inspection Extremities: Normal Inspection, Normal Range of Motion. No: No Pedal Edema, Pedal Edema, Leg Pain, Increased Warmth Neurological: Alert, Oriented, CN II-XII Intact, Normal Cognition, No Motor/Sensory Deficits Psychiatric: Normal Affect, Normal Mood Skin Exam: Warm, Dry, Intact, Normal Color, No Rash #1 Interpretation EKG Date: 01/02/20 Time: 05:10 Rhythm: NSR Rate (Beats/Min): 73 [place]: Normal P-Wave: Present QRS: Normal ST-T: Normal QT: Normal Comparison: No Change Course - Vital Signs Last Recorded V/S: Last Vital Signs Temp 36.2 C 01/02/20 05:36 Pulse 77 01/02/20 05:36 Resp 13 01/02/20 05:36 BP 111/53 L 01/02/20 05:36 Pulse Ox 100 01/02/20 05:36 - Orders/Labs/Meds Orders: Active Orders 24 hr Category Date Time Status Cardiac Monitoring [RC] .As Directed Care 01/02/20 04:46 Active EKG Documentation Completion [RC] ASDIRECTED Care 01/02/20 06:32 Active Oxygen Therapy Adult [Oxygen Therapy, ED] [RC] Care 01/02/20 04:46 Active ASDIRECTED Chest 2V [CR] Stat Exams 01/02/20 05:02 Taken UA W/MICROSCOPIC [URIN] Stat Lab 01/02/20 04:45 Ordered Sodium Chloride 0.9% [Normal Saline] 1,000 ml Med 01/02/20 04:40 Active IV ASDIRECTED EKG 12 Lead [EK] Routine Ther 01/02/20 05:00 Ordered Medication Orders Sodium Chloride (Normal Saline) 1,000 mls @ 999 mls/hr IV ASDIRECTED SHILPA Last Admin: 01/02/20 04:42 Dose: 999 mls/hr Documented by: TAYA Labs: Laboratory Tests 01/02/20 01/02/20 01/02/20 Range/Units 04:58 04:58 04:58 WBC 5.5 (4.5-11.0) K/uL RBC 3.79 (3.30-5.50) M/uL Hgb 10.7 L (12.0-15.0) g/dL Hct 34.7 L (36.0-48.0) % MCV 92 (80-98) fL MCH 28 (27-31) pg MCHC 31 L (32-36) % Plt Count 135 L (150-400) K/uL D-Dimer, Quantitative 546.33 H (0.0-500.0) ng/mL Sodium 141 (140-148) mmol/L Potassium 3.5 L (3.6-5.2) mmol/L Chloride 106 (100-108) mmol/L Carbon Dioxide 27 (21-32) mmol/L Anion Gap 11.5 (5.0-14.0) mmol/L BUN 18 (7-18) mg/dL Creatinine 0.7 (0.6-1.0) mg/dL Est Cr Clr Drug Dosing 64.58 mL/min Estimated GFR (MDRD) > 60 (>60) Glucose 138 H (74-106) mg/dL Calcium 8.0 L (8.5-10.1) mg/dL Troponin I (0.000-0.056) ng/mL 01/02/20 01/02/20 Range/Units 04:58 06:25 WBC (4.5-11.0) K/uL RBC (3.30-5.50) M/uL Hgb (12.0-15.0) g/dL Hct (36.0-48.0) % MCV (80-98) fL MCH (27-31) pg MCHC (32-36) % Plt Count (150-400) K/uL D-Dimer, Quantitative (0.0-500.0) ng/mL Sodium (140-148) mmol/L Potassium (3.6-5.2) mmol/L Chloride (100-108) mmol/L Carbon Dioxide (21-32) mmol/L Anion Gap (5.0-14.0) mmol/L BUN (7-18) mg/dL Creatinine (0.6-1.0) mg/dL Est Cr Clr Drug Dosing mL/min Estimated GFR (MDRD) (>60) Glucose (74-106) mg/dL Calcium (8.5-10.1) mg/dL Troponin I < 0.017 < 0.017 (0.000-0.056) ng/mL Meds: Medications Generic Name Dose Route Start Last Admin Trade Name Freq PRN Reason Stop Dose Admin Sodium Chloride 1,000 mls @ 999 mls/hr 01/02/20 04:40 01/02/20 04:42 Normal Saline IV 999 mls/hr ASDIRECTED SHILPA Administration Discontinued Medications Generic Name Dose Route Start Last Admin Trade Name Freq PRN Reason Stop Dose Admin Sodium Chloride 100 mls @ 4 mls/sec 01/02/20 05:59 01/02/20 06:10 Normal Saline IV 01/02/20 06:00 4 mls/sec ASDIRECTED STA Administration Iopamidol 100 ml 01/02/20 05:56 01/02/20 06:10 Isovue-370 (76%) IV 01/02/20 05:57 100 ml . DIRECTED STA Administration Ketorolac Tromethamine 15 mg 01/02/20 04:48 01/02/20 04:58 Toradol IVPUSH 01/02/20 04:49 15 mg ONETIME ONE Administration Lorazepam 0.5 mg 01/02/20 05:02 01/02/20 05:34 Ativan IVPUSH 01/02/20 05:03 0.5 mg ONETIME ONE Administration - Radiology Interpretation Free Text/Narrative:: CXR-neg angio chest-neg CT Results Date: 01/02/20 Departure - Departure Time of Disposition: 07:10 Disposition: Home, Self-Care 01 Condition: Good Clinical Impression: Atypical chest pain Referrals: PCP,None [Primary Care Provider] - Forms: ED Department Discharge Additional Instructions: Acetaminophen 650 mg every 4 hrs as needed. F/U with your provider for recheck. Your tests for heart and lung blood clots were all negative today. Sepsis Event Note (ED) - Evaluation Sepsis Screening Result: No Definite Risk - Focused Exam Vital Signs: Vital Signs Temp Pulse Resp BP Pulse Ox 01/02/20 05:36 36.2 C 77 13 111/53 L 100 01/02/20 05:33 36.2 C 77 11 L 108/54 L 97 01/02/20 05:21 36.2 C 74 14 94/46 L 99 01/02/20 05:06 36.2 C 69 14 82/46 L 98 01/02/20 04:54 36.2 C 67 11 L 85/44 L 100 01/02/20 04:53 36.2 C 69 14 84/42 L 94 L 01/02/20 04:47 36.2 C 68 15 83/41 L 96 01/02/20 04:42 36.2 C 69 14 84/42 L 94 L - My Orders Last 24 Hours: My Active Orders 01/02/20 04:40 Sodium Chloride 0.9% [Normal Saline] 1,000 ml IV ASDIRECTED 01/02/20 04:45 UA W/MICROSCOPIC [URIN] Stat 01/02/20 04:46 Cardiac Monitoring [RC] .As Directed Oxygen Therapy Adult [Oxygen Therapy, ED] [RC] ASDIRECTED 01/02/20 05:00 EKG 12 Lead [EK] Routine 01/02/20 05:02 Chest 2V [CR] Stat 01/02/20 06:32 EKG Documentation Completion [RC] ASDIRECTED - Assessment/Plan Last 24 Hours: My Active Orders 01/02/20 04:40 Sodium Chloride 0.9% [Normal Saline] 1,000 ml IV ASDIRECTED 01/02/20 04:45 UA W/MICROSCOPIC [URIN] Stat 01/02/20 04:46 Cardiac Monitoring [RC] .As Directed Oxygen Therapy Adult [Oxygen Therapy, ED] [RC] ASDIRECTED 01/02/20 05:00 EKG 12 Lead [EK] Routine 01/02/20 05:02 Chest 2V [CR] Stat 01/02/20 06:32 EKG Documentation Completion [RC] ASDIRECTED
[2020-01-02 05:43] VITALS: BP 111/53; PULSE 77
[2020-01-02] MEDS ORDERED: Iopamidol 755 Mg/ML 100 ML Bottle IV STA (05:56)
[2020-01-02] MEDS ORDERED: Sodium Chloride 0.9% 100 ML IV STA (05:59)
--- NOTE | 2020-01-02 06:44 | CRLCT ---
INDICATION: Dyspnea. Elevated D-dimer COMPARISON: September 20, 2018 TECHNIQUE: : CT examination of the chest was performed with the uneventful intravenous administration of 100 cc of Isovue 3 7 while thin axial sections were obtained from above the apices of the lungs to the lung bases. Please note that all CT scans at this facility use dose modulation, iterative reconstruction, and/or weight-based dosing when appropriate to reduce radiation dose to as low as reasonably achievable. FINDINGS: : HEART and MEDIASTINUM: Heart size top normal. No mediastinal or hilar adenopathy or mass. There are atherosclerotic vascular calcifications. PULMONARY ARTERIAL CIRCULATION: There is no visible intraluminal filling defect to suggest pulmonary embolus. LUNGS: Linear bibasilar parenchymal opacities likely atelectasis. There are numerous nodules roughly in a bilateral and symmetric fashion most of which are tree-in-bud nodules. This is slightly more prominent than previously and are likely inflammatory. There is also an irregular nodule in the right middle lobe measuring about 10 millimeters that is unchanged and is probably fibrotic. No focal consolidation. PLEURAL SPACES: There is no pleural effusion, pneumothorax or pleural based mass. VISUALIZED UPPER ABDOMEN: Scattered low-density hepatic lesions similar to the prior study likely all cysts. OSSEOUS STRUCTURES: Age-appropriate appearance. No acute fracture or destructive process. TUBES and LINES: None. IMPRESSION: 1. There is no finding of pulmonary embolus. 2. Bibasilar airspace process probably atelectasis. No focal consolidation. No pleural effusion or pneumothorax. 3. Numerous tiny nodules most of which are tree-in-bud nodules. These are usually inflammatory but have somewhat worsened since 2019. There is also an irregular right middle lobe nodule measuring about 10 millimeters which is unchanged and likely fibrotic. Recommend follow-up evaluation by pulmonology in the nonacute care setting regarding the nodularity as chronic tree-in-bud nodules are often related to LISANDRO. 4. Numerous hepatic lesions likely all cysts unchanged Please note that all CT scans at this facility use dose modulation, iterative reconstruction, and/or weight-based dosing when appropriate to reduce radiation dose to as low as reasonably achievable. Dictated by David Ralph MD @ Jan 02 2020 6:35AM Signed by Dr. David Ralph @ Jan 02 2020 6:43AM
[2020-01-02] MEDS ORDERED: Acetaminophen 325 MG Tab PO ONE (06:55)
--- NOTE | 2020-01-02 09:20 | CR ---
CHEST: 2 view CLINICAL HISTORY:SOB, chest pain COMPARISON:10/18/2018 FINDINGS: Heart size and pulmonary vascular normal. There are atherosclerotic changes in the aorta.. There is some patchy density in the left lower lobe. This may represent some subsegmental atelectasis or infiltrate. IMPRESSION: Streaky left basilar density. The this may represent some patchy atelectasis. Infiltrate is felt less likely.
== END 2020-01-02 07:09 | disposition home or self-care (01) ==
LOC: JP.ED 04:39
DX: R07.89 Other chest pain (principal); I25.10 Atherosclerotic heart disease of native coronary artery without angina pectoris; I10 Essential (primary) hypertension; K21.9 Gastro-esophageal reflux disease without esophagitis; F41.9 Anxiety disorder, unspecified; Z79.899 Other long term (current) drug therapy
CPT/HCPCS: 36415; 71046; 71275; 80048; 84484; 85027; 85379; 93005; 96374; 96375; 99285; A9270; J1885; J2060; J7030; Q9967

== ENCOUNTER 2020-01-02 14:44 | Emergency (ER) | payer MEDICARE, OTHER ==
[2020-01-02] MEDS ORDERED: Heparin Sodium/D5W 25,000 UNITS/500 ML BAG IV SCH (15:00)
[2020-01-02] MEDS ORDERED: Ticagrelor 90 MG Tab PO ONE (15:00)
[2020-01-02] MEDS ORDERED: Heparin Sodium 5,000 Units/ML Vial IVPUSH ONE (15:00)
[2020-01-02] MEDS ORDERED: fentaNYL 100 MCG/2 ML SDV IVPUSH ONE (15:04)
[2020-01-02] MEDS ORDERED: Ondansetron 4 MG/2 ML SDV IVPUSH ONE (15:04)
--- NOTE | 2020-01-02 15:06 | EDM.PDOC ---
ED HPI GENERAL MEDICAL PROBLEM - General Chief Complaint: Chest Pain Stated Complaint: CHEST PAINS Time Seen by Provider: 01/02/20 14:45 Source of Information: Reports: Patient, Family History Limitations: Reports: No Limitations - History of Present Illness INITIAL COMMENTS - FREE TEXT/NARRATIVE: 69-year-old female that has had chest pain since 2:30 this morning. She was evaluated here in the emergency room and had a normal EKG and negative troponin. Pain is persistent, just to the right of the sternum and fairly localized. No significant radiation, some mild discomfort with breathing. Also some shortness of breath and has developed nausea and occasional emesis this afternoon. Has not had previous pain like this, no fevers or chills. 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: Aspirin (Patient received four low-dose aspirin this morning) Mid-Sternal Chest Pain Score (Numeric/FACES): 4 - Related Data Allergies Allergy/AdvReac Type Severity Reaction Status Date / Time amoxicillin Allergy Abdominal Verified 01/02/20 04:57 Cramps hydroxyzine HCl Allergy Unknown Verified 01/02/20 04:57 [From Vistaril] hydroxyzine pamoate Allergy Unknown Verified 01/02/20 04:57 [From Vistaril] Iodinated Contrast Media Allergy Tachycardia Verified 01/02/20 04:57 meperidine HCl [From Demerol] Allergy Unknown Verified 01/02/20 04:57 metronidazole Allergy Cannot Verified 01/02/20 04:57 Remember morphine Allergy Unknown Verified 01/02/20 04:57 procaine [From Novocain] Allergy Cannot Verified 01/02/20 04:57 Remember pentazocine [From Talwin] AdvReac Anxiety Verified 01/02/20 04:57 tape Allergy Rash Uncoded 01/02/20 04:57 Home Meds: Home Meds Cholecalciferol (Vitamin D3) [Vitamin D3] 4,000 unit PO DAILY 04/17/17 [History] busPIRone [Buspar] 10 mg PO BID 04/17/17 [History] Montelukast [Singulair] 10 mg PO BEDTIME 02/20/18 [History] Tiotropium [Spiriva] 1 cap INH DAILY 06/04/18 [History] Pantoprazole [ProTONIX] 20 mg PO DAILY 10/18/18 [History] Methotrexate [Xatmep] 10 ml PO Q7D 11/26/18 [History] Mometasone Furoate [Elocon] 1 applic TP BID 11/26/18 [History] Acetaminophen [Tylenol Extra Strength] 1,000 mg PO Q8H PRN 08/23/19 [History] Folic Acid 800 mcg PO DAILY 08/23/19 [History] Metoprolol Tartrate [Lopressor] 100 mg PO DAILY 08/23/19 [History] cycloSPORINE [Restasis] 1 drop OP BID 08/23/19 [History] prednisoLONE acetate [Pred Forte 1% Ophth Susp] 1 drop EYERT BID 08/23/19 [History] Past Medical History HEENT History: Reports: Impaired Vision Cardiovascular History: Reports: Arrhythmia, Hypertension Other Cardiovascular History: history of atypical chest pain Respiratory History: Reports: Pneumonia, Recurrent, Other (See Below) Other Respiratory History: pulmonary nodule Gastrointestinal History: Reports: GERD Other Gastrointestinal History: gassy Genitourinary History: Reports: None 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 SI pain Neurological History: Reports: Migraines Other Neuro History: anxiety Psychiatric History: Reports: Anxiety, Panic Attack Endocrine/Metabolic History: Reports: Osteoporosis, Vitamin D Deficiency Immunologic History: Reports: Immunosuppression Dermatologic History: Reports: Other (See Below) Other Dermatologic History: rosacea - Infectious Disease History Infectious Disease History: Reports: Chicken Pox - Past Surgical History HEENT Surgical History: Reports: None Cardiovascular Surgical History: Reports: None Respiratory Surgical History: Reports: None GI Surgical History: Reports: Appendectomy, Colonoscopy, EGD Female Surgical History: Reports: Breast Biopsy, Hysterectomy, Other (See Below) Other Female Surgeries/Procedures: partial hysterectomy and bladder sling Endocrine Surgical History: Reports: None Neurological Surgical History: Reports: Laminectomy Musculoskeletal Surgical History: Reports: None Dermatological Surgical History: Reports: None Social & Family History - Family History Family Medical History: Noncontributory Cardiac: Reports: Other (See Below) Other Cardiac Family History: rapid heart beat repaired in sister - takes medicine for it - Caffeine Use Caffeine Use: Reports: Tea ED ROS GENERAL - Review of Systems Review Of Systems: See Below Constitutional: Denies: Fever, Chills HEENT: Reports: No Symptoms Respiratory: Reports: Shortness of Breath Cardiovascular: Reports: Chest Pain. Denies: Palpitations GI/Abdominal: Reports: Nausea, Vomiting. Denies: Abdominal Pain : Reports: No Symptoms Skin: Reports: Pallor Neurological: Denies: Headache ED EXAM, GENERAL - Physical Exam Exam: See Below Exam Limited By: No Limitations General Appearance: Alert, Mild Distress (Fairly uncomfortable) Eye Exam: Left Eye: Periorbital Changes (Small bruise under her left eye) Head: Atraumatic Respiratory/Chest: No Respiratory Distress, Lungs Clear Cardiovascular: Regular Rate, Rhythm, Other (Chest is sore with palpation just to the right of the sternum) GI/Abdominal: Soft, Non-Tender Extremities: Normal Inspection. No: Pedal Edema Neurological: Alert, Oriented Psychiatric: Anxious Skin Exam: Warm, Dry #1 Interpretation Rhythm: NSR ST-T: Elevated (EKG now shows ST elevation diffusely through the anterolateral leads) EKG Interpretation Comments: ST elevation mainly in the anterior lateral leads but diffuse changes are present. Course - Vital Signs Last Recorded V/S: Last Vital Signs Temp 98.7 F 01/02/20 15:02 Pulse 85 01/02/20 15:27 Resp 20 01/02/20 15:27 BP 132/63 01/02/20 15:27 Pulse Ox 97 01/02/20 15:27 - Orders/Labs/Meds Labs: Laboratory Tests 01/02/20 01/02/20 Range/Units 15:00 15:07 Troponin I < 0.017 (0.000-0.056) ng/mL SARS CoV-2 RNA Rapid DEISI Negative Meds: Medications Discontinued Medications Generic Name Dose Route Start Last Admin Trade Name Freq PRN Reason Stop Dose Admin Fentanyl 25 mcg 01/02/20 15:04 01/02/20 15:13 Sublimaze IVPUSH 01/02/20 15:05 25 mcg ONETIME ONE Administration Heparin Sodium (Porcine) 4,000 units 01/02/20 15:00 01/02/20 15:06 Heparin Sodium IVPUSH 01/02/20 15:01 4,000 units ONETIME ONE Administration Heparin Sodium/Dextrose 25,000 units in 500 mls @ 16 mls/hr 01/02/20 15:00 01/02/20 15:12 Heparin 25,000 Units In D5w 500 Ml IV 800 units/hr TITRATE SHILPA 16 mls/hr Administration Protocol 800 UNITS/HR Ondansetron HCl 4 mg 01/02/20 15:04 01/02/20 15:13 Zofran IVPUSH 01/02/20 15:05 4 mg ONETIME ONE Administration Ticagrelor 180 mg 01/02/20 15:00 01/02/20 15:07 Brilinta PO 01/02/20 15:01 180 mg ONETIME ONE Administration - Re-Assessments/Exams Free Text/Narrative Re-Assessment/Exam: When patient arrived to the emergency room showed obvious ST elevation in lead II so EKG was repeated which showed diffuse ST elevation to the anterior lateral leads. IV was started and troponin drawn. 01/02/20 15:08 An IV was started, troponin was redrawn, and patient was bolused with Brilinta orally and heparin IV. Heparin drip was also started. 25 mcg of fentanyl and 4 mg of IV Zofran was given. Both EKGs were faxed to cardiology at [facility] and awaiting response. 01/02/20 15:21 Patient responded well to the 25 mcg of fentanyl. 01/02/20 15:32 Troponin returned 0, chest x-ray and CT angiograms are reviewed. This was discussed with cardiology and the potential for pericarditis versus STEMI is possible. Patient was transferred urgently to [facility] for cardiology evaluation. Departure - Departure Time of Disposition: 15:45 Disposition: DC/Tfer to Other 70 Reason for Transfer *Q: Primary PCI Indicated Clinical Impression: ST elevation (STEMI) myocardial infarction Qualifiers: Involved coronary artery: unspecified coronary artery Qualified Code(s): I21.3 - ST elevation (STEMI) myocardial infarction of unspecified site Referrals: PCP,None [Primary Care Provider] - Forms: ED Department Discharge Care Plan Goals: 69-year-old female transferred urgently to [facility] for persistent chest pain with ST elevation. She will be taken to Identification Clerk to assess for possible STEMI versus pericarditis. Dr. Marshall kindly accepted the patient for transfer. Sepsis Event Note (ED) - Focused Exam Vital Signs: Vital Signs Temp Pulse Resp BP Pulse Ox 01/02/20 15:27 85 20 132/63 97 01/02/20 15:02 98.7 F 84 24 H 132/62 92 L
[2020-01-02 15:27] VITALS: BP 132/63; PULSE 85
== END 2020-01-02 15:30 | disposition other institution (70) ==
LOC: JP.ED 14:44
DX: I21.3 ST elevation (STEMI) myocardial infarction of unspecified site (principal); I10 Essential (primary) hypertension; K21.9 Gastro-esophageal reflux disease without esophagitis; F41.9 Anxiety disorder, unspecified; Z88.1 Allergy status to other antibiotic agents; Z88.8 Allergy status to other drugs, medicaments and biological substances; Z88.5 Allergy status to narcotic agent; Z88.4 Allergy status to anesthetic agent; Z91.048 Other nonmedicinal substance allergy status; Z20.828 Contact with and (suspected) exposure to other viral communicable diseases; Z91.041 Radiographic dye allergy status
CPT/HCPCS: 36415; 84484; 96365; 96375; 99285; A9270; J1644; J2405; J3010; U0002

== ENCOUNTER 2020-01-08 04:48 | Inpatient (IN) | payer MEDICARE, OTHER ==
[2020-01-08] MEDS ORDERED: Diltiazem 25 MG/5 ML SDV IVPUSH ONE ×2 (05:04→11:40)
--- NOTE | 2020-01-08 05:07 | EDM.PDOC ---
ED HPI GENERAL MEDICAL PROBLEM - General Chief Complaint: Chest Pain Stated Complaint: MEDICAL VIA [place] Time Seen by Provider: 01/08/20 05:01 Source of Information: Reports: Patient, EMS, RN Notes Reviewed History Limitations: Reports: No Limitations - History of Present Illness INITIAL COMMENTS - FREE TEXT/NARRATIVE: 69-year-old female presents to the emergency department today via EMS services for new onset atrial fibrillation, she was recently hospitalized for a bout of pericarditis thought to be related to her autoimmune disease states has been in sinus rhythm doing fine and in a 4:00 this morning she was awoken felt palpitations felt some chest pressure felt a little short of breath subsequent called EMS services for transport to the ED. At this time she is stable able to answer all questions still feels the palpitations and still feels some chest discomfort - Related Data Allergies Allergy/AdvReac Type Severity Reaction Status Date / Time amoxicillin Allergy Abdominal Verified 01/08/20 05:28 Cramps hydroxyzine HCl Allergy Unknown Verified 01/08/20 05:28 [From Vistaril] hydroxyzine pamoate Allergy Unknown Verified 01/08/20 05:28 [From Vistaril] Iodinated Contrast Media Allergy Tachycardia Verified 01/08/20 05:28 meperidine HCl [From Demerol] Allergy Unknown Verified 01/08/20 05:28 metronidazole Allergy Cannot Verified 01/08/20 05:28 Remember morphine Allergy Unknown Verified 01/08/20 05:28 procaine [From Novocain] Allergy Cannot Verified 01/08/20 05:28 Remember pentazocine [From Talwin] AdvReac Anxiety Verified 01/08/20 05:28 tape Allergy Rash Uncoded 01/08/20 05:28 Home Meds: Home Meds Cholecalciferol (Vitamin D3) [Vitamin D3] 4,000 unit PO DAILY 04/17/17 [History] busPIRone [Buspar] 10 mg PO BID 04/17/17 [History] Montelukast [Singulair] 10 mg PO BEDTIME 04/18/17 [History] Tiotropium [Spiriva] 1 cap INH DAILY 06/04/18 [History] Pantoprazole [ProTONIX] 20 mg PO DAILY 10/18/18 [History] Methotrexate [Xatmep] 10 ml PO Q7D 11/26/18 [History] Mometasone Furoate [Elocon] 1 applic TP BID 11/26/18 [History] Acetaminophen [Tylenol Extra Strength] 1,000 mg PO Q8H PRN 08/23/19 [History] Folic Acid 800 mcg PO DAILY 08/23/19 [History] cycloSPORINE [Restasis] 1 drop OP BID 08/23/19 [History] prednisoLONE acetate [Pred Forte 1% Ophth Susp] 1 drop EYERT BID 08/23/19 [History] Colchicine 0.6 mg PO BID 01/08/20 [History] Furosemide [Lasix] 1 tab PO DAILY 01/08/20 [History] predniSONE [Prednisone] 20 mg PO BID 01/08/20 [History] Past Medical History HEENT History: Reports: Impaired Vision Cardiovascular History: Reports: Arrhythmia, Hypertension Other Cardiovascular History: history of atypical chest pain Respiratory History: Reports: Pneumonia, Recurrent, Other (See Below) Other Respiratory History: pulmonary nodule Gastrointestinal History: Reports: GERD Other Gastrointestinal History: gassy 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 SI pain Neurological History: Reports: Migraines Other Neuro History: anxiety Psychiatric History: Reports: Anxiety, Panic Attack Endocrine/Metabolic History: Reports: Osteoporosis, Vitamin D Deficiency Immunologic History: Reports: Immunosuppression Dermatologic History: Reports: Other (See Below) Other Dermatologic History: rosacea - Infectious Disease History Infectious Disease History: Reports: Chicken Pox - Past Surgical History HEENT Surgical History: Reports: None Cardiovascular Surgical History: Reports: None Respiratory Surgical History: Reports: None GI Surgical History: Reports: Appendectomy, Colonoscopy, EGD Female Surgical History: Reports: Breast Biopsy, Hysterectomy, Other (See Below) Other Female Surgeries/Procedures: partial hysterectomy and bladder sling Endocrine Surgical History: Reports: None Neurological Surgical History: Reports: Laminectomy Musculoskeletal Surgical History: Reports: None Dermatological Surgical History: Reports: None Social & Family History - Family History Family Medical History: No Pertinent Family History Cardiac: Reports: Other (See Below) Other Cardiac Family History: rapid heart beat repaired in sister - takes medicine for it - Caffeine Use Caffeine Use: Reports: Tea ED ROS GENERAL - Review of Systems Review Of Systems: See Below Constitutional: Reports: No Symptoms HEENT: Reports: No Symptoms Respiratory: Reports: Shortness of Breath Cardiovascular: Reports: Chest Pain, Palpitations GI/Abdominal: Reports: No Symptoms ED EXAM, GENERAL - Physical Exam Exam: See Below Exam Limited By: No Limitations General Appearance: Alert, Mild Distress Respiratory/Chest: No Respiratory Distress, Lungs Clear, Normal Breath Sounds, No Accessory Muscle Use, Chest Non-Tender Cardiovascular: No Murmur, Tachycardia GI/Abdominal: Soft, Non-Tender ED CARDIOLOGY PROCEDURES - Cardioversion Time of Cardioversion: 06:34 Indication: Atrial Fibrillation with RVR Patient Counseled: Yes Informed Consent Obtained: Yes Preparation: IV Access, Airway Management Equipment, Supplemental Oxygen, Monitor, Reversal Agents Available, Other Pre-Procedure Sedation: Propofol (Anesthesia in the room) Cardioversion Energy: 200J Sync, Other (300) Successful: No Number of Attempts: 2 Patient Condition Post Cardioversion: Unchanged Post Cardioversion EKG Reviewed: No Course - Vital Signs Last Recorded V/S: Last Vital Signs Temp 95.5 F L 01/08/20 04:58 Pulse 125 H 01/08/20 05:43 Resp 14 01/08/20 05:43 BP 115/52 L 01/08/20 05:43 Pulse Ox 97 01/08/20 05:43 - Orders/Labs/Meds Orders: Active Orders 24 hr Category Date Time Status Cardiac Monitoring [RC] .As Directed Care 01/08/20 05:03 Active EKG Documentation Completion [RC] ASDIRECTED Care 01/08/20 05:04 Active Chest 1V Frontal [CR] Stat Exams 01/08/20 05:04 Taken Diltiazem 100 MG in Normal Saline Adv @ 5 MG/HR(100ml) Med 01/08/20 06:30 Ordered Diltiazem [Cardizem] 100 mg Sodium Chloride 0.9% [Normal Saline] 100 ml IV TITRATE Sodium Chloride 0.9% [Normal Saline] 1,000 ml Med 01/08/20 05:15 Active IV ASDIRECTED EKG 12 Lead [EK] Stat Ther 01/08/20 05:03 Ordered Medication Orders Sodium Chloride (Normal Saline) 1,000 mls @ 125 mls/hr IV ASDIRECTED SHILPA Last Admin: 01/08/20 05:13 Dose: 125 mls/hr Documented by: EDGAR Diltiazem HCl 100 mg/ Sodium (Chloride) 100 mls @ 5 mls/hr IV TITRATE SHILPA; Protocol Labs: Laboratory Tests 01/08/20 01/08/20 01/08/20 Range/Units 05:20 05:20 05:20 WBC 5.6 (4.5-11.0) K/uL RBC 4.01 (3.30-5.50) M/uL Hgb 11.6 L (12.0-15.0) g/dL Hct 35.8 L (36.0-48.0) % MCV 89 (80-98) fL MCH 29 (27-31) pg MCHC 32 (32-36) % Plt Count 170 (150-400) K/uL Neut % (Auto) 80 H (36-66) % Lymph % (Auto) 10 L (24-44) % [place] % (Auto) 10 H (2-6) % Eos % (Auto) 0 L (2-4) % Baso % (Auto) 0 (0-1) % PT 11.6 (9.5-12.0) sec INR 1.07 (0.80-1.20) APTT 23.3 L (27.0-36.0) sec Sodium 142 (140-148) mmol/L Potassium 3.0 L (3.6-5.2) mmol/L Chloride 105 (100-108) mmol/L Carbon Dioxide 23 (21-32) mmol/L Anion Gap 17.0 H (5.0-14.0) mmol/L BUN 20 H (7-18) mg/dL Creatinine 0.7 (0.6-1.0) mg/dL Est Cr Clr Drug Dosing 64.58 mL/min Estimated GFR (MDRD) > 60 (>60) Glucose 119 H (74-106) mg/dL Calcium 8.3 L (8.5-10.1) mg/dL Total Bilirubin 0.4 (0.2-1.0) mg/dL AST 51 H D (15-37) U/L ALT 148 H (12-78) U/L Alkaline Phosphatase 92 (46-116) U/L Troponin I 0.024 (0.000-0.056) ng/mL Total Protein 6.1 L (6.4-8.2) g/dL Albumin 2.8 L (3.4-5.0) g/dL Globulin 3.3 (2.3-3.5) g/dL Albumin/Globulin Ratio 0.9 L (1.2-2.2) Meds: Medications Generic Name Dose Route Start Last Admin Trade Name Goyo PRN Reason Stop Dose Admin Sodium Chloride 1,000 mls @ 125 mls/hr 01/08/20 05:15 01/08/20 05:13 Normal Saline IV 125 mls/hr ASDIRECTED SHILPA Administration Diltiazem HCl 100 mg/ Sodium 100 mls @ 5 mls/hr 01/08/20 06:30 Chloride IV TITRATE SHILPA Protocol 5 MG/HR Discontinued Medications Generic Name Dose Route Start Last Admin Trade Name Freq PRN Reason Stop Dose Admin Diltiazem HCl 20 mg 01/08/20 05:04 01/08/20 05:12 Diltiazem IVPUSH 01/08/20 05:05 20 mg ONETIME ONE Administration Propofol Confirm 01/08/20 06:29 Diprivan 20 Ml Administered 01/08/20 06:30 Dose 200 mg .ROUTE .STK-MED ONE Departure - Departure Time of Disposition: 06:34 Disposition: Admitted As Inpatient 65 Condition: Fair Clinical Impression: Atrial fibrillation with RVR Referrals: PCP,None [Primary Care Provider] - Forms: ED Department Discharge Sepsis Event Note (ED) - Evaluation Sepsis Screening Result: Possible Sepsis Risk - Focused Exam Vital Signs: Vital Signs Temp Pulse Resp BP Pulse Ox 01/08/20 05:43 125 H 14 115/52 L 97 01/08/20 05:20 135 H 12 135/80 97 01/08/20 04:58 95.5 F L 146 H 14 134/96 H 97 - My Orders Last 24 Hours: My Active Orders 01/08/20 05:03 Cardiac Monitoring [RC] .As Directed EKG 12 Lead [EK] Stat 01/08/20 05:04 EKG Documentation Completion [RC] ASDIRECTED Chest 1V Frontal [CR] Stat 01/08/20 05:15 Sodium Chloride 0.9% [Normal Saline] 1,000 ml IV ASDIRECTED 01/08/20 06:30 Diltiazem 100 MG in Normal Saline Adv @ 5 MG/HR(100ml) Diltiazem [Cardizem] 100 mg Sodium Chloride 0.9% [Normal Saline] 100 ml IV TITRATE - Assessment/Plan Last 24 Hours: My Active Orders 01/08/20 05:03 Cardiac Monitoring [RC] .As Directed EKG 12 Lead [EK] Stat 01/08/20 05:04 EKG Documentation Completion [RC] ASDIRECTED Chest 1V Frontal [CR] Stat 01/08/20 05:15 Sodium Chloride 0.9% [Normal Saline] 1,000 ml IV ASDIRECTED 01/08/20 06:30 Diltiazem 100 MG in Normal Saline Adv @ 5 MG/HR(100ml) Diltiazem [Cardizem] 100 mg Sodium Chloride 0.9% [Normal Saline] 100 ml IV TITRATE Plan: Assessment Acuity = acute Site and laterality = atrial fibrillation with rapid ventricular response complicated patient with rheumatoid arthritis history of pericarditis Etiology = unknown Manifestations = dyspnea and chest pressure Location of injury = Home Lab values = hemoglobin low 11.6 consistent normochromic anemia potassium low at 3.0 consistent hypokalemia AST elevated 51 ALT elevated 148 troponin in the normal range at 0.024 probably related to the RVR Plan Did attempt bolus of Cardizem did attempt cardioversion all unsuccessful call discussed case hospitalist on-call at 630 this morning kindly agreed to come and evaluate the patient emergency department for admission have initiated a Cardizem drip This note was dictated using [employer] voice recognition software please call with any questions on syntax or grammar.
[2020-01-08] MEDS ORDERED: Sodium Chloride 0.9% 1,000 ML IV SCH (05:15)
[2020-01-08] MEDS ORDERED: Propofol 200 MG/20 ML SDV ONE (06:29)
[2020-01-08] MEDS ORDERED: Diltiazem 100 MG in Sodium Chloride 0.9% 100 ML IV SCH ×2 (06:30→10:30)
--- NOTE | 2020-01-08 07:34 | PCM.HP.2 ---
H&P History of Present Illness - General Date of Service: 01/08/20 Admit Problem/Dx: Admission Diagnosis/Problem Admission Diagnosis/Problem Atrial fibrillation Source of Information: Patient, Provider, RN Notes Reviewed History Limitations: Reports: No Limitations - History of Present Illness Initial Comments - Free Text/Narative: Ms. Candelaria is a 69-year-old woman who was admitted through the emergency department with palpitations, weakness and shortness of breath, secondary to atrial fibrillation with rapid ventricular response. She was just hospitalized in [place] for management and evaluation of pericarditis secondary to her underlying rheumatoid arthritis. She was discharged on prednisone and felt fairly well yesterday. She awoke early this morning with rapid irregular heart rhythm and associated symptoms. On evaluation in the emergency department was noted to be in atrial fibrillation with rapid ventricular response. Cardioversion was attempted twice and was unsuccessful. She has been given a bolus dose of diltiazem and started on a continuous infusion of diltiazem with fairly good control of heart rate.[id number] score is calculated at 3. - Related Data Allergies/Adverse Reactions: Allergies Allergy/AdvReac Type Severity Reaction Status Date / Time amoxicillin Allergy Abdominal Verified 01/08/20 05:28 Cramps hydroxyzine HCl Allergy Unknown Verified 01/08/20 05:28 [From Vistaril] hydroxyzine pamoate Allergy Unknown Verified 01/08/20 05:28 [From Vistaril] Iodinated Contrast Media Allergy Tachycardia Verified 01/08/20 05:28 meperidine HCl [From Demerol] Allergy Unknown Verified 01/08/20 05:28 metronidazole Allergy Cannot Verified 01/08/20 05:28 Remember morphine Allergy Unknown Verified 01/08/20 05:28 procaine [From Novocain] Allergy Cannot Verified 01/08/20 05:28 Remember pentazocine [From Talwin] AdvReac Anxiety Verified 01/08/20 05:28 tape Allergy Rash Uncoded 01/08/20 05:28 Home Medications: Home Meds Cholecalciferol (Vitamin D3) [Vitamin D3] 4,000 unit PO DAILY 04/17/17 [History] busPIRone [Buspar] 10 mg PO BID 04/17/17 [History] Montelukast [Singulair] 10 mg PO BEDTIME 04/18/17 [History] Tiotropium [Spiriva] 1 cap INH DAILY 06/04/18 [History] Pantoprazole [ProTONIX] 20 mg PO DAILY 10/18/18 [History] Methotrexate [Xatmep] 10 ml PO Q7D 11/26/18 [History] Mometasone Furoate [Elocon] 1 applic TP BID 11/26/18 [History] Acetaminophen [Tylenol Extra Strength] 1,000 mg PO Q8H PRN 08/23/19 [History] Folic Acid 800 mcg PO DAILY 08/23/19 [History] cycloSPORINE [Restasis] 1 drop OP BID 08/23/19 [History] prednisoLONE acetate [Pred Forte 1% Ophth Susp] 1 drop EYERT BID 08/23/19 [History] Colchicine 0.6 mg PO BID 01/08/20 [History] Furosemide [Lasix] 1 tab PO DAILY 01/08/20 [History] predniSONE [Prednisone] 20 mg PO BID 01/08/20 [History] Past Medical History HEENT History: Reports: Impaired Vision Cardiovascular History: Reports: Arrhythmia, Hypertension Other Cardiovascular History: history of atypical chest pain Respiratory History: Reports: Pneumonia, Recurrent, Other (See Below) Other Respiratory History: pulmonary nodule Gastrointestinal History: Reports: GERD Other Gastrointestinal History: gassy Genitourinary History: Reports: None CABIN MAN History: Reports: Musculoskeletal History: Reports: Back Pain, Chronic, RA, Other (See Below) Other Musculoskeletal History: toenail removed July 2016 left foot 2nd toe. SI pain Neurological History: Reports: Migraines Other Neuro History: anxiety Psychiatric History: Reports: Anxiety, Panic Attack Endocrine/Metabolic History: Reports: Osteoporosis, Vitamin D Deficiency Immunologic History: Reports: Immunosuppression Dermatologic History: Reports: Other (See Below) Other Dermatologic History: rosacea - Infectious Disease History Infectious Disease History: Reports: Chicken Pox - Past Surgical History HEENT Surgical History: Reports: None Cardiovascular Surgical History: Reports: None Respiratory Surgical History: Reports: None GI Surgical History: Reports: Appendectomy, Colonoscopy, EGD Female Surgical History: Reports: Breast Biopsy, Hysterectomy, Other (See Be low) Other Female Surgeries/Procedures: partial hysterectomy and bladder sling Endocrine Surgical History: Reports: None Neurological Surgical History: Reports: Laminectomy Musculoskeletal Surgical History: Reports: None Dermatological Surgical History: Reports: None Social & Family History - Family History Family Medical History: No Pertinent Family History Cardiac: Reports: Other (See Below) Other Cardiac Family History: rapid heart beat repaired in sister - takes medicine for it - Tobacco Use Tobacco Use Status *Q: Never Tobacco User - Caffeine Use Caffeine Use: Reports: Tea H&P Review of Systems - Review of Systems: Review Of Systems: See Below General: Reports: Weakness, Fatigue. Denies: Fever, Chills HEENT: Reports: No Symptoms Pulmonary: Reports: Shortness of Breath. Denies: Wheezing, Pleuritic Chest Pain, Cough, Sputum, Hemoptysis Cardiovascular: Reports: Palpitations, Dyspnea on Exertion. Denies: Chest Pain, Orthopnea, PND, Edema, Lightheadedness Gastrointestinal: Reports: No Symptoms Genitourinary: Reports: No Symptoms Musculoskeletal: Reports: No Symptoms Skin: Reports: No Symptoms Psychiatric: Reports: No Symptoms Neurological: Reports: No Symptoms Hematologic/Lymphatic: Reports: No Symptoms Immunologic: Reports: No Symptoms Exam - Exam Exam: See Below - Vital Signs Vital Signs: Last Vital Signs Temp 95.5 F L 01/08/20 04:58 Pulse 137 H 01/08/20 07:25 Resp 10 L 01/08/20 07:25 BP 120/79 01/08/20 07:25 Pulse Ox 97 01/08/20 07:25 Weight: 146 lb - Exam Quality Assessment: DVT Prophylaxis General: Alert, Oriented, Cooperative, Mild Distress HEENT: Conjunctiva Clear, Hearing Intact, Mucosa Moist & [place], Normal Nasal Septum, Posterior Pharynx Clear, Pupils Equal Neck: Supple, Trachea Midline, +2 Carotid Pulse wo Bruit Lungs: Clear to Auscultation, Normal Respiratory Effort, Decreased Breath Sounds Cardiovascular: Regular Rate, Normal S1, Normal S2, Irregular Rhythm. No: Systolic Murmur, Diastolic Murmur GI/Abdominal Exam: Soft, Non-Tender, No Organomegaly, No Distention Back Exam: Normal Inspection, Full Range of Motion Extremities: Non-Tender, No Pedal Edema, Other (Chronic changes of rheumatoid arthritis both hands) Skin: Warm, Dry, Intact Neurological: Cranial Nerves Intact, Strength Equal Bilateral, Normal Speech, Normal Tone, Sensation Intact. No: Focal Deficit Neuro Extensive - Mental Status: Alert, Oriented x3, Normal Mood/Affect, Normal Cognition, Memory Intact - Patient Data Lab Results Last 24 hrs: Laboratory Results - last 24 hr 01/08/20 01/08/20 01/08/20 Range/Units 05:20 05:20 05:20 WBC 5.6 (4.5-11.0) K/uL RBC 4.01 (3.30-5.50) M/uL Hgb 11.6 L (12.0-15.0) g/dL Hct 35.8 L (36.0-48.0) % MCV 89 (80-98) fL MCH 29 (27-31) pg MCHC 32 (32-36) % Plt Count 170 (150-400) K/uL Neut % (Auto) 80 H (36-66) % Lymph % (Auto) 10 L (24-44) % [place] % (Auto) 10 H (2-6) % Eos % (Auto) 0 L (2-4) % Baso % (Auto) 0 (0-1) % PT 11.6 (9.5-12.0) sec INR 1.07 (0.80-1.20) APTT 23.3 L (27.0-36.0) sec Sodium 142 (140-148) mmol/L Potassium 3.0 L (3.6-5.2) mmol/L Chloride 105 (100-108) mmol/L Carbon Dioxide 23 (21-32) mmol/L Anion Gap 17.0 H (5.0-14.0) mmol/L BUN 20 H (7-18) mg/dL Creatinine 0.7 (0.6-1.0) mg/dL Est Cr Clr Drug Dosing 64.58 mL/min Estimated GFR (MDRD) > 60 (>60) Glucose 119 H (74-106) mg/dL Calcium 8.3 L (8.5-10.1) mg/dL Total Bilirubin 0.4 (0.2-1.0) mg/dL AST 51 H D (15-37) U/L ALT 148 H (12-78) U/L Alkaline Phosphatase 92 (46-116) U/L Troponin I 0.024 (0.000-0.056) ng/mL Total Protein 6.1 L (6.4-8.2) g/dL Albumin 2.8 L (3.4-5.0) g/dL Globulin 3.3 (2.3-3.5) g/dL Albumin/Globulin Ratio 0.9 L (1.2-2.2) Result Diagrams: 01/08/20 05:20 01/08/20 05:20 Sepsis Event Note - Evaluation Sepsis Screening Result: Possible Sepsis Risk - Focused Exam Vital Signs: Vital Signs Temp Pulse Resp BP Pulse Ox 01/08/20 07:25 137 H 10 L 120/79 97 01/08/20 06:50 122 H 12 119/75 100 01/08/20 05:43 125 H 14 115/52 L 97 01/08/20 05:20 135 H 12 135/80 97 01/08/20 04:58 95.5 F L 146 H 14 134/96 H 97 *Q Meaningful Use (ADM) - VTE Risk Assess *Q Each Risk Factor Represents 1 Point: None Total Score 1 Point Risk Factors: 0 Each Risk Factor Represents 2 Points: Age 60 - 74 Years Total Score 2 Point Risk Factors: 2 Each Risk Factor Represents 3 Points: None Total Score 3 Point Risk Factors: 0 Each Risk Factor Represents 5 Points: None Total Score 5 Point Risk Factors: 0 Venous Thromboembolism Risk Factor Score *Q: 2 Problem List Initiated/Reviewed/Updated: Yes Orders Last 24hrs: Active Orders 24 hr Category Date Time Status Patient Status Manage Transfer [TRANSFER] Routine ADT 01/08/20 07:26 Ordered Cardiac Monitoring [RC] .As Directed Care 01/08/20 05:03 Active EKG Documentation Completion [RC] ASDIRECTED Care 01/08/20 05:04 Active Chest 1V Frontal [CR] Stat Exams 01/08/20 05:04 Taken Diltiazem [Cardizem] 100 mg Med 01/08/20 06:30 Active Sodium Chloride 0.9% [Normal Saline] 100 ml IV TITRATE Sodium Chloride 0.9% [Normal Saline] 1,000 ml Med 01/08/20 05:15 Active IV ASDIRECTED Resuscitation Status Routine Resus Stat 01/08/20 07:29 Ordered EKG 12 Lead [EK] Stat Ther 01/08/20 05:03 Ordered Medication Orders Sodium Chloride (Normal Saline) 1,000 mls @ 125 mls/hr IV ASDIRECTED [facility] Last Admin: 01/08/20 05:13 Dose: 125 mls/hr Documented by: EDGAR Diltiazem HCl 100 mg/ Sodium (Chloride) 100 mls @ 5 mls/hr IV TITRATE [facility]; Protocol Last Admin: 01/08/20 06:48 Dose: 5 mg/hr, 5 mls/hr Documented by: EDGAR Assessment/Plan Comment:: ASSESSMENT AND PLAN ATRIAL FIBRILLATION WITH RAPID VENTRICULAR RESPONSE-recent hospitalization for pericarditis, no prior history of atrial fibrillation or other cardiac disease. Calculated CHADS@VASc score of 3. -If she does not convert will need to initiate anticoagulation -Continue infusion of diltiazem, plan to convert to oral rate control -Obtain echocardiogram reports from [place] PERICARDITIS-secondary to underlying rheumatoid arthritis -Continue current therapy with prednisone RHEUMATOID ARTHRITIS -Continue outpatient medical therapy MAINTENANCE ISSUES -DVT prophylaxis; Lovenox 40 mg subcu daily -GI prophylaxis; not indicated -Combs catheter; not indicated -Nutrition; 2 g sodium diet -Nicotine dependence; not required CODE STATUS-FULL CODE ADMISSION STATUS-patient will be admitted to inpatient status, expect at least a 2 night hospital stay for evaluation and management of problems as outlined above. At the time of this admission I do not reasonably expected evaluation and management of this problem will require more than a 96 hour hospital stay. DISPOSITION-anticipate discharge to home after the hospital stay. PRIMARY CARE PROVIDER- - Mortality Measure Prognosis:: Good
--- NOTE | 2020-01-08 09:25 | CR ---
CHEST: Portable 01/08/2020 at 5:42 AM CLINICAL HISTORY:Chest pain COMPARISON:None FINDINGS: Heart size and pulmonary vascularity are normal. There are atherosclerotic changes in the aorta. No infiltrate is identified. There is some blunting the right costophrenic angle. This may be chronic or due to minimal effusion. IMPRESSION: Blunting of the right breast phrenic angle may be chronic or represent some minimal right effusion. Upright two-view chest is recommended when patient's condition allows.
[2020-01-08] MEDS ORDERED: Acetaminophen 325 MG Tab PO PRN (09:54)
[2020-01-08] MEDS ORDERED: Ondansetron 4 MG/2 ML SDV IV PRN (09:54)
[2020-01-08] MEDS ORDERED: METHOTREXATE PO SCH (09:54)
[2020-01-08] MEDS ORDERED: Albuterol 0.083% 2.5 MG/3 ML Neb Soln NEB PRN (09:54)
[2020-01-08] MEDS ORDERED: Polyethylene Glycol 3350 Powder 17 GM Packet PO PRN (09:54)
[2020-01-08] MEDS ORDERED: Sodium Chloride 0.9% 10 ML Syringe FLUSH PRN (09:54)
[2020-01-08] MEDS ORDERED: Potassium Chloride 20 MEQ Tab.ER PO ONE ×2 (10:15→13:00)
[2020-01-08] MEDS: Enoxaparin 40 MG/0.4 ML Syringe SUBCUT SCH (10:47)
[2020-01-08] MEDS ORDERED: Pantoprazole 40 MG Tab.CR PO SCH (11:00)
[2020-01-08] MEDS: Furosemide 20 MG Tab PO SCH (11:44)
[2020-01-08] MEDS: Pantoprazole 40 MG Tab.CR PO SCH (11:44)
[2020-01-08] MEDS: Colchicine 0.6 MG Tab PO SCH ×2 (11:44→20:15)
[2020-01-08] MEDS: predniSONE 20 MG Tab PO SCH ×2 (11:44→20:15)
[2020-01-08] MEDS: prednisoLONE Acetate 1% Ophth Susp 5 ML Bottle EYERT SCH ×2 (11:45→20:15)
[2020-01-08] MEDS: busPIRone 10 MG Tab PO SCH ×2 (11:45→20:15)
[2020-01-08] MEDS: Tiotropium Bromide 4 GM Inhalation Spray (2.5mcg/1 dose; 10 doses) INH SCH (11:46)
[2020-01-08] MEDS ORDERED: METHOTREXATE 25 MG/ML PO SCH (12:00)
[2020-01-08] MEDS: RESTASIS 0.05% EYEBOTH SCH ×2 (13:32→20:16)
[2020-01-08] MEDS ORDERED: Aluminum Hydroxide/Magnesium Hydroxide/Simethicone Susp 30 ML Cup PO PRN (18:23)
[2020-01-08] MEDS ORDERED: Montelukast 10 MG Tab PO SCH (21:00)
[2020-01-09] MEDS: Tiotropium Bromide 4 GM Inhalation Spray (2.5mcg/1 dose; 10 doses) INH SCH (06:59)
[2020-01-09] MEDS: Pantoprazole 40 MG Tab.CR PO SCH (07:35)
[2020-01-09] MEDS: Colchicine 0.6 MG Tab PO SCH (08:45)
[2020-01-09] MEDS: busPIRone 10 MG Tab PO SCH (08:45)
[2020-01-09] MEDS: Furosemide 20 MG Tab PO SCH (08:45)
[2020-01-09] MEDS: prednisoLONE Acetate 1% Ophth Susp 5 ML Bottle EYERT SCH (08:46)
[2020-01-09] MEDS: predniSONE 20 MG Tab PO SCH (08:47)
[2020-01-09] MEDS: RESTASIS 0.05% EYEBOTH SCH (08:47)
[2020-01-09] MEDS: Enoxaparin 40 MG/0.4 ML Syringe SUBCUT SCH (10:46)
--- NOTE | 2020-01-09 12:46 | PCM.DCSUM1 ---
Discharge Summary - Hospital Course Brief History: Ms. Candelaria is a 69-year-old woman who was admitted through the emergency department with weakness and lightheadedness secondary to atrial fibrillation with rapid ventricular response. - Discharge Data Discharge Date: 01/09/20 Discharge Disposition: Home, Self-Care 01 Condition: Good - Referral to Home Health Primary Care Physician: Holly Ponce CNM - Discharge Diagnosis/Problem(s) (1) Atrial fibrillation with RVR SNOMED Code(s): 184464696830503 ICD Code: I48.91 - UNSPECIFIED ATRIAL FIBRILLATION Status: Acute - Patient Summary/Data Hospital Course: Ms. Candelaria is a 69-year-old woman who was admitted through the emergency department with palpitations, weakness and shortness of breath, secondary to atrial fibrillation with rapid ventricular response. She was just hospitalized in [place] for management and evaluation of pericarditis secondary to her underlying rheumatoid arthritis. She was discharged on prednisone and felt fairly well yesterday. She awoke early this morning with rapid irregular heart rhythm and associated symptoms. On evaluation in the emergency department was noted to be in atrial fibrillation with rapid ventricular response. Cardioversion was attempted twice and was unsuccessful. She has been given a bolus dose of diltiazem and started on a continuous infusion of diltiazem with fairly good control of heart rate.[id number] score is calculated at 3. On admission she was continued on the continuous infusion of diltiazem. Later in the afternoon she spontaneously converted to sinus rhythm and remained in sinus rhythm throughout the duration of her hospital stay. Diltiazem was discontinued and given that this is the first episode of atrial fibrillation, likely related to the pericarditis, she will not be started on ongoing medication for rate control, rhythm control, or anticoagulation. Activity will be as tolerated and she will resume her usual diet. Follow-up appointment will be scheduled with her primary care provider within 1 week. - Patient Instructions Diet: Usual Diet as Tolerated Activity: As Tolerated Other/Special Instructions: Please schedule follow-up appointment with primary care provider within 1 week - Discharge Plan *PRESCRIPTION DRUG MONITORING PROGRAM REVIEWED*: Not Applicable *COPY OF PRESCRIPTION DRUG MONITORING REPORT IN PATIENT JOSR: Not Applicable Home Medications: Home Meds Cholecalciferol (Vitamin D3) [Vitamin D3] 4,000 unit PO DAILY 04/17/17 [History] busPIRone [Buspar] 10 mg PO BID 04/17/17 [History] Montelukast [Singulair] 10 mg PO BEDTIME 04/18/17 [History] Tiotropium [Spiriva HandiHaler] 1 cap INH DAILY 06/04/18 [History] Pantoprazole [ProTONIX] 20 mg PO DAILY 10/18/18 [History] Methotrexate [Xatmep] 1 ml PO Q7D 11/26/18 [History] Mometasone Furoate [Elocon] 1 applic TP BID 11/26/18 [History] Acetaminophen [Tylenol Extra Strength] 1,000 mg PO Q8H PRN 08/23/19 [History] Folic Acid 800 mcg PO DAILY 08/23/19 [History] cycloSPORINE [Restasis] 1 drop OP BID 08/23/19 [History] prednisoLONE acetate [Pred Forte 1% Ophth Susp] 1 drop EYERT BID 08/23/19 [History] Colchicine 0.6 mg PO BID 01/08/20 [History] Furosemide [Lasix] 1 tab PO DAILY 01/08/20 [History] Methotrexate Sodium/PF [Methotrexate 25 mg/ml Vial] 25 mg PO Q7D 01/08/20 [History] predniSONE [Prednisone] 20 mg PO BID 01/08/20 [History] Referrals: Holly Ponce CNM [Primary Care Provider] - - Discharge Summary/Plan Comment DC Time >30 min.: No - Patient Data Vitals - Most Recent: Last Vital Signs Temp 97.8 F 01/09/20 12:07 Pulse 73 01/09/20 12:07 Resp 15 01/09/20 12:07 BP 122/77 01/09/20 12:07 Pulse Ox 95 01/09/20 11:00 Weight - Most Recent: 151 lb 3.2 oz I&O - Last 24 hours: Intake & Output 01/08/20 01/09/20 01/09/20 22:59 06:59 14:59 Intake Total 360 Output Total 1000 Balance -1000 360 Lab Results - Last 24 hrs: Laboratory Results - last 24 hr 01/09/20 01/09/20 Range/Units 05:48 05:48 WBC 6.2 (4.5-11.0) K/uL RBC 4.12 (3.30-5.50) M/uL Hgb 12.0 (12.0-15.0) g/dL Hct 36.9 (36.0-48.0) % MCV 90 (80-98) fL MCH 29 (27-31) pg MCHC 33 (32-36) % Plt Count 175 (150-400) K/uL Neut % (Auto) 91 H (36-66) % Lymph % (Auto) 6 L (24-44) % [place] % (Auto) 4 (2-6) % Eos % (Auto) 0 L (2-4) % Baso % (Auto) 0 (0-1) % Sodium 140 (140-148) mmol/L Potassium 4.0 (3.6-5.2) mmol/L Chloride 106 (100-108) mmol/L Carbon Dioxide 25 (21-32) mmol/L Anion Gap 9.2 (5.0-14.0) mmol/L BUN 19 H (7-18) mg/dL Creatinine 0.6 (0.6-1.0) mg/dL Est Cr Clr Drug Dosing 75.34 mL/min Estimated GFR (MDRD) > 60 (>60) Glucose 129 H (74-106) mg/dL Calcium 8.0 L (8.5-10.1) mg/dL Magnesium 2.1 (1.8-2.4) mg/dL Med Orders - Current: Current Medications Acetaminophen (Tylenol) 650 mg PO Q4H PRN PRN Reason: Pain (Mild 1-3)/fever Al Hydroxide/Mg Hydroxide (Mag-Al Plus) 30 ml PO Q4H PRN PRN Reason: Dyspepsia Last Admin: 01/08/20 20:15 Dose: 30 ml Documented by: Albuterol (Proventil Neb Soln) 2.5 mg NEB Q4H PRN PRN Reason: Shortness Of Breath/wheezing Buspirone HCl (Buspar) 10 mg PO BID [facility] Last Admin: 01/09/20 08:45 Dose: 10 mg Documented by: Colchicine (Colcrys) 0.6 mg PO BID [facility] Last Admin: 01/09/20 08:45 Dose: 0.6 mg Documented by: Enoxaparin Sodium (Lovenox) 40 mg SUBCUT Q24H [facility] Last Admin: 01/09/20 10:46 Dose: 40 mg Documented by: Furosemide (Lasix) 20 mg PO DAILY [facility] Last Admin: 01/09/20 08:45 Dose: 20 mg Documented by: Montelukast Sodium (Singulair) 10 mg PO BEDTIME [facility] Last Admin: 01/08/20 20:15 Dose: 10 mg Documented by: Ondansetron HCl (Zofran) 4 mg IV Q4H PRN PRN Reason: Nausea/Vomiting Pantoprazole Sodium (Protonix) 40 mg PO ACBREAKFAST [facility] Last Admin: 01/09/20 07:35 Dose: 40 mg Documented by: Restasis 0.05% (Ptom) 0 each EYEBOTH BID [facility] Last Admin: 01/09/20 08:47 Dose: 1 each Documented by: Methotrexate 25mg/Ml (Inj (Ptom)) 0 each PO Q7D [facility] Last Admin: 01/08/20 11:29 Dose: 1 each Documented by: Polyethylene Glycol (Miralax) 17 gm PO DAILY PRN PRN Reason: Constipation Prednisolone Acetate (Pred Forte 1% Ophth Susp) 0 ml EYERT BID [facility] Last Admin: 01/09/20 08:46 Dose: 1 drop Documented by: Prednisone (Prednisone) 20 mg PO BID [facility] Last Admin: 01/09/20 08:47 Dose: 20 mg Documented by: Sodium Chloride (Saline Flush) 10 ml FLUSH ASDIRECTED PRN PRN Reason: Keep Vein Open Tiotropium [place] (Spiriva Respimat) 0 gm INH DAILY@0700 [facility] Last Admin: 01/09/20 06:59 Dose: 4 gm Documented by: Discontinued Medications Diltiazem HCl (Diltiazem) 20 mg IVPUSH ONETIME ONE Stop: 01/08/20 05:05 Last Admin: 01/08/20 05:12 Dose: 20 mg Documented by: Diltiazem HCl (Diltiazem) 5 mg IVPUSH ONETIME ONE Stop: 01/08/20 11:41 Last Admin: 01/08/20 11:46 Dose: 5 mg Documented by: Sodium Chloride (Normal Saline) 1,000 mls @ 125 mls/hr IV ASDIRECTED [facility] Last Admin: 01/08/20 05:13 Dose: 125 mls/hr Documented by: Diltiazem HCl 100 mg/ Sodium (Chloride) 100 mls @ 5 mls/hr IV TITRATE [facility]; Protocol Last Admin: 01/08/20 06:48 Dose: 5 mg/hr, 5 mls/hr Documented by: Diltiazem HCl 100 mg/ Sodium (Chloride) 100 mls @ 5 mls/hr IV TITRATE [facility]; Protocol Potassium Chloride (Klor-Con M20) 40 meq PO ONETIME ONE Stop: 01/08/20 10:16 Last Admin: 01/08/20 10:47 Dose: 40 meq Documented by: Potassium Chloride (Klor-Con M20) 40 meq PO ONETIME ONE Stop: 01/08/20 13:01 Last Admin: 01/08/20 13:31 Dose: 40 meq Documented by: Propofol (Diprivan 20 Ml) Confirm Administered Dose 200 mg .ROUTE .STK-MED ONE Stop: 01/08/20 06:30 - Exam General: Reports: Alert, Oriented, Cooperative, No Acute Distress Lungs: Reports: Clear to Auscultation, Normal Respiratory Effort Cardiovascular: Reports: Regular Rate, Regular Rhythm, No Murmurs GI/Abdominal Exam: Soft, Non-Tender, No Organomegaly, No Distention Extremities: Non-Tender, No Pedal Edema
[2020-01-09 15:02] VITALS: BP 132/73; PULSE 75
== END 2020-01-09 15:25 | disposition home or self-care (01) | DRG 316 ==
LOC: JP.ED 04:48 → JP.ICU 07:26
PROVIDERS: ADMIT Hospitalist; ATTEND Hospitalist
DX: I31.9 Disease of pericardium, unspecified (principal); I48.91 Unspecified atrial fibrillation; M06.9 Rheumatoid arthritis, unspecified; H54.7 Unspecified visual loss; I10 Essential (primary) hypertension; K21.9 Gastro-esophageal reflux disease without esophagitis; M54.9 Dorsalgia, unspecified; Z20.828 Contact with and (suspected) exposure to other viral communicable diseases; G89.29 Other chronic pain; D84.9 Immunodeficiency, unspecified; Z88.6 Allergy status to analgesic agent; Z88.4 Allergy status to anesthetic agent; Z88.1 Allergy status to other antibiotic agents; Z91.041 Radiographic dye allergy status; F41.9 Anxiety disorder, unspecified; Z91.048 Other nonmedicinal substance allergy status; F41.0 Panic disorder [episodic paroxysmal anxiety]; M81.0 Age-related osteoporosis without current pathological fracture; E55.9 Vitamin D deficiency, unspecified; Z88.0 Allergy status to penicillin; Z88.8 Allergy status to other drugs, medicaments and biological substances; Z88.5 Allergy status to narcotic agent; Z91.09 Other allergy status, other than to drugs and biological substances; Z79.52 Long term (current) use of systemic steroids; Z79.899 Other long term (current) drug therapy
CPT/HCPCS: 36415; 71045; 71045-26; 80048; 80053; 83735; 84484; 85025; 85610; 85730; 93005; 94640; A9270-GY; J1650; J2704; J3490; J7030; J7050; J7512; U0002

== ENCOUNTER 2020-01-18 11:55 | Emergency (ER) | payer MEDICARE, OTHER ==
[2020-01-18 12:38] VITALS: BP 136/80; PULSE 70
--- NOTE | 2020-01-18 12:56 | EDM.PDOC ---
ED HPI GENERAL MEDICAL PROBLEM - General Chief Complaint: Cardiovascular Problem Stated Complaint: BP/HEART ISSUES Time Seen by Provider: 01/18/20 12:40 Source of Information: Reports: Patient, Old Records, RN History Limitations: Reports: No Limitations - History of Present Illness INITIAL COMMENTS - FREE TEXT/NARRATIVE: 69 yo female awoke from a short nap with several seconds of SOB that resolved spontaneously. Her has a pulse ox, but she did not use it. There was no associated calf pain/swelling, fever, cough, pleuritic chest pain or diaphoresis. She feels fine now in the ER. She has a recent hospitalization for chest pain that turned out to be pericarditis and recently had some med change in the clinic. 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 (see below) (none) - Related Data Allergies Allergy/AdvReac Type Severity Reaction Status Date / Time amoxicillin Allergy Abdominal Verified 01/18/20 12:27 Cramps hydroxyzine HCl Allergy Unknown Verified 01/18/20 12:27 [From Vistaril] hydroxyzine pamoate Allergy Unknown Verified 01/18/20 12:27 [From Vistaril] Iodinated Contrast Media Allergy Tachycardia Verified 01/18/20 12:27 meperidine HCl [From Demerol] Allergy Unknown Verified 01/18/20 12:27 metronidazole Allergy Cannot Verified 01/18/20 12:27 Remember morphine Allergy Unknown Verified 01/18/20 12:27 procaine [From Novocain] Allergy Cannot Verified 01/18/20 12:27 Remember pentazocine [From Talwin] AdvReac Anxiety Verified 01/18/20 12:27 tape Allergy Rash Uncoded 01/18/20 12:27 Home Meds: Home Meds Cholecalciferol (Vitamin D3) [Vitamin D3] 4,000 unit PO DAILY 04/17/17 [History] busPIRone [Buspar] 10 mg PO BID 04/17/17 [History] Montelukast [Singulair] 10 mg PO BEDTIME 04/18/17 [History] Tiotropium [Spiriva HandiHaler] 1 cap INH DAILY 06/04/18 [History] Pantoprazole [ProTONIX] 20 mg PO DAILY 10/18/18 [History] Methotrexate [Xatmep] 1 ml PO Q7D 11/26/18 [History] Mometasone Furoate [Elocon] 1 applic TP BID 11/26/18 [History] Acetaminophen [Tylenol Extra Strength] 1,000 mg PO Q8H PRN 08/23/19 [History] Folic Acid 800 mcg PO DAILY 08/23/19 [History] cycloSPORINE [Restasis] 1 drop OP BID 08/23/19 [History] prednisoLONE acetate [Pred Forte 1% Ophth Susp] 1 drop EYERT BID 08/23/19 [History] Furosemide [Lasix] 1 tab PO DAILY 01/08/20 [History] Methotrexate Sodium/PF [Methotrexate 25 mg/ml Vial] 25 mg PO Q7D 01/08/20 [History] predniSONE [Prednisone] 20 mg PO BID 01/08/20 [History] Metoprolol Succinate [Toprol XL] 1 tab PO DAILY 01/18/20 [History] Past Medical History HEENT History: Reports: Impaired Vision Cardiovascular History: Reports: Arrhythmia, Hypertension Other Cardiovascular History: history of atypical chest pain a fib Respiratory History: Reports: Pneumonia, Recurrent, Other (See Below) Other Respiratory History: pulmonary nodule Gastrointestinal History: Reports: GERD Other Gastrointestinal History: gassy Genitourinary History: Reports: None [employer] History: Reports: Musculoskeletal History: Reports: Back Pain, Chronic, RA, Other (See Below) Other Musculoskeletal History: toenail removed July 2016 left foot 2nd toe. SI pain Neurological History: Reports: Migraines Other Neuro History: anxiety Psychiatric History: Reports: Anxiety, Panic Attack Endocrine/Metabolic History: Reports: Osteoporosis, Vitamin D Deficiency Immunologic History: Reports: Immunosuppression Dermatologic History: Reports: Other (See Below) Other Dermatologic History: rosacea - Infectious Disease History Infectious Disease History: Reports: Chicken Pox - Past Surgical History HEENT Surgical History: Reports: None Cardiovascular Surgical History: Reports: None Respiratory Surgical History: Reports: None GI Surgical History: Reports: Appendectomy, Colonoscopy, EGD Female Surgical History: Reports: Breast Biopsy, Hysterectomy, Other (See Below) Other Female Surgeries/Procedures: partial hysterectomy and bladder sling Endocrine Surgical History: Reports: None Neurological Surgical History: Reports: Laminectomy Musculoskeletal Surgical History: Reports: None Dermatological Surgical History: Reports: None Social & Family History - Family History Family Medical History: No Pertinent Family History Cardiac: Reports: Other (See Below) Other Cardiac Family History: rapid heart beat repaired in sister - takes medicine for it - Tobacco Use Tobacco Use Status *Q: Never Tobacco User - Caffeine Use Caffeine Use: Reports: None ED ROS GENERAL - Review of Systems Review Of Systems: See Below Constitutional: Reports: No Symptoms HEENT: Reports: No Symptoms Respiratory: Reports: Shortness of Breath (fully resolved now). Denies: Wheezing, Pleuritic Chest Pain, Cough, Sputum, Hemoptysis Cardiovascular: Reports: No Symptoms GI/Abdominal: Reports: No Symptoms : Reports: No Symptoms Musculoskeletal: Reports: No Symptoms Skin: Reports: No Symptoms Neurological: Reports: No Symptoms Psychiatric: Reports: No Symptoms ED EXAM, GENERAL - Physical Exam Exam: See Below Exam Limited By: No Limitations General Appearance: Alert, WD/WN, No Apparent Distress Eye Exam: Bilateral Eye: Normal Inspection Ears: Normal External Exam, Normal Canal, Hearing Grossly Normal Ear Exam: Bilateral Ear: Auricle Normal, Canal Normal Nose: Normal Inspection, No Blood Throat/Mouth: Normal Inspection, Normal Lips, Normal Oropharynx, Normal Voice, No Airway Compromise Head: Atraumatic, Normocephalic Neck: Normal Inspection Respiratory/Chest: No Respiratory Distress, Lungs Clear, Normal Breath Sounds, No Accessory Muscle Use Cardiovascular: Regular Rate, Rhythm, No Edema GI/Abdominal: Normal Bowel Sounds, Soft, Non-Tender, No Distention Extremities: Normal Inspection, Normal Range of Motion, Non-Tender, No Pedal Edema Neurological: Alert, Oriented, CN II-XII Intact, Normal Cognition, No Motor/Sensory Deficits Psychiatric: Normal Affect, Normal Mood Skin Exam: Warm, Dry, Intact, Normal Color, No Rash Course - Vital Signs Last Recorded V/S: Last Vital Signs Temp 35.4 C L 01/18/20 12:37 Pulse 70 01/18/20 12:37 Resp 14 01/18/20 12:37 BP 136/80 01/18/20 12:37 Pulse Ox 97 01/18/20 12:37 Departure - Departure Time of Disposition: 12:56 Disposition: Home, Self-Care 01 Condition: Good Clinical Impression: Dyspnea Qualifiers: Dyspnea type: unspecified Qualified Code(s): R06.00 - Dyspnea, unspecified Referrals: Holly Ponce CNM [Primary Care Provider] - Additional Instructions: Continue your usual medications. Use your oximeter if this recurs. Return as needed. Sepsis Event Note (ED) - Evaluation Sepsis Screening Result: No Definite Risk - Focused Exam Vital Signs: Vital Signs Temp Pulse Resp BP Pulse Ox 01/18/20 12:37 35.4 C L 70 14 136/80 97
== END 2020-01-18 13:23 | disposition home or self-care (01) ==
LOC: JP.ED 11:55
DX: R06.02 Shortness of breath (principal); I10 Essential (primary) hypertension; K21.9 Gastro-esophageal reflux disease without esophagitis; I48.91 Unspecified atrial fibrillation; F41.9 Anxiety disorder, unspecified; Z88.1 Allergy status to other antibiotic agents; Z88.8 Allergy status to other drugs, medicaments and biological substances; Z91.041 Radiographic dye allergy status; Z88.5 Allergy status to narcotic agent; Z91.048 Other nonmedicinal substance allergy status; Z79.899 Other long term (current) drug therapy
CPT/HCPCS: 99283

== ENCOUNTER 2020-01-29 03:36 | Emergency (ER) | payer MEDICARE, OTHER ==
[2020-01-29 04:02] VITALS: BP 138/81; PULSE 89
--- NOTE | 2020-01-29 04:23 | EDM.PDOC ---
ED HPI GENERAL MEDICAL PROBLEM - General Chief Complaint: Gastrointestinal Problem Stated Complaint: ABD PAIN Time Seen by Provider: 01/29/20 04:10 Source of Information: Reports: Patient History Limitations: Reports: No Limitations - History of Present Illness INITIAL COMMENTS - FREE TEXT/NARRATIVE: 69-year-old female who is not having a bowel movement for 5 days, is uncomfort able and feels impacted. She is got some vague intermittent abdominal discomfort, especially lower abdomen. No fevers or chills, denies nausea or vomiting. She has taken Dulcolax x2 and stool softener but it "has not worked". Onset: Gradual Duration: Day(s): (At least 5 days) Associated Symptoms: Reports: Other (Abdominal pain) abd Pain Score (Numeric/FACES): 6 - Related Data Allergies Allergy/AdvReac Type Severity Reaction Status Date / Time amoxicillin Allergy Abdominal Verified 01/29/20 03:54 Cramps hydroxyzine HCl Allergy Unknown Verified 01/29/20 03:54 [From Vistaril] hydroxyzine pamoate Allergy Unknown Verified 01/29/20 03:54 [From Vistaril] Iodinated Contrast Media Allergy Tachycardia Verified 01/29/20 03:54 meperidine HCl [From Demerol] Allergy Unknown Verified 01/29/20 03:54 metronidazole Allergy Cannot Verified 01/29/20 03:54 Remember morphine Allergy Unknown Verified 01/29/20 03:54 procaine [From Novocain] Allergy Cannot Verified 01/29/20 03:54 Remember pentazocine [From Talwin] AdvReac Anxiety Verified 01/29/20 03:54 tape Allergy Rash Uncoded 01/29/20 03:54 Home Meds: Home Meds Cholecalciferol (Vitamin D3) [Vitamin D3] 2,000 unit PO DAILY 04/17/17 [History] busPIRone [Buspar] 10 mg PO BID 04/17/17 [History] Montelukast [Singulair] 10 mg PO BEDTIME 04/18/17 [History] Tiotropium [Spiriva HandiHaler] 1 cap INH DAILY 06/04/18 [History] Pantoprazole [ProTONIX] 20 mg PO DAILY 10/18/18 [History] Methotrexate [Xatmep] 0.25 ml PO Q7D 11/26/18 [History] Mometasone Furoate [Elocon] 1 applic TP BID 11/26/18 [History] Acetaminophen [Tylenol Extra Strength] 1,000 mg PO Q8H PRN 08/23/19 [History] Folic Acid 800 mcg PO DAILY 08/23/19 [History] cycloSPORINE [Restasis] 1 drop OP BID 08/23/19 [History] prednisoLONE acetate [Pred Forte 1% Ophth Susp] 1 drop EYERT BID 08/23/19 [History] Furosemide [Lasix] 1 tab PO DAILY 01/08/20 [History] predniSONE [Prednisone] 15 mg PO BID 01/08/20 [History] Metoprolol Succinate [Toprol XL] 1 tab PO DAILY 01/18/20 [History] estradioL [Estring] 1 applic VAG Q90D 01/29/20 [History] Past Medical History HEENT History: Reports: Impaired Vision Cardiovascular History: Reports: Afib, Arrhythmia, Hypertension Other Cardiovascular History: history of atypical chest pain a fib Respiratory History: Reports: Pneumonia, Recurrent, Other (See Below) Other Respiratory History: pulmonary nodule Gastrointestinal History: Reports: GERD, Hemorrhoids Other Gastrointestinal History: gassy Genitourinary History: Reports: None [employer] 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 SI pain Neurological History: Reports: Migraines Other Neuro History: anxiety Psychiatric History: Reports: Anxiety, Panic Attack Endocrine/Metabolic History: Reports: Osteoporosis, Vitamin D Deficiency Immunologic History: Reports: Immunosuppression Dermatologic History: Reports: Other (See Below) Other Dermatologic History: rosacea - Infectious Disease History Infectious Disease History: Reports: Chicken Pox - Past Surgical History HEENT Surgical History: Reports: None GI Surgical History: Reports: Appendectomy, Colonoscopy, EGD Female Surgical History: Reports: Breast Biopsy, Hysterectomy, Other (See Below) Other Female Surgeries/Procedures: partial hysterectomy and bladder sling Endocrine Surgical History: Reports: None Neurological Surgical History: Reports: Laminectomy Dermatological Surgical History: Reports: None Social & Family History - Family History Family Medical History: No Pertinent Family History Cardiac: Reports: Other (See Below) Other Cardiac Family History: rapid heart beat repaired in sister - takes medicine for it - Tobacco Use Tobacco Use Status *Q: Never Tobacco User - Caffeine Use Caffeine Use: Reports: None - Recreational Drug Use Recreational Drug Use: No ED ROS GENERAL - Review of Systems Review Of Systems: See Below Constitutional: Denies: Fever, Chills Respiratory: Denies: Shortness of Breath Cardiovascular: Denies: Chest Pain GI/Abdominal: Reports: Abdominal Pain, Constipation. Denies: Nausea, Vomiting Skin: Reports: No Symptoms Neurological: Reports: No Symptoms ED EXAM, GI/ABD - Physical Exam Exam: See Below Exam Limited By: No Limitations General Appearance: Alert, No Apparent Distress (Looks uncomfortable but no distress) Eyes: Bilateral: Normal Appearance (No jaundice) Respiratory/Chest: No Respiratory Distress GI/Abdominal Exam: Soft Rectal (Female) Exam: Other (Fairly generous amount of rectal stool is present, mild impaction possible. Small external thrombosed hemorrhoid which is tender.). No: Bloody Stool Neurological: Alert, Oriented Skin Exam: Warm, Dry Course - Vital Signs Last Recorded V/S: Last Vital Signs Temp 98.1 F 01/29/20 04:01 Pulse 89 01/29/20 04:01 Resp 18 01/29/20 04:01 BP 138/81 01/29/20 04:01 Pulse Ox 96 01/29/20 04:01 - Orders/Labs/Meds Meds: Medications Discontinued Medications Generic Name Dose Route Start Last Admin Trade Name Goyo PRN Reason Stop Dose Admin Lidocaine HCl 10 ml 01/29/20 04:17 01/29/20 04:26 Xylocaine 2% Jelly MUCMEM 01/29/20 04:18 10 ml ONETIME ONE Administration Sodium Biphosphate/Sodium Phosphate 133 ml 01/29/20 05:00 01/29/20 05:20 Fleet Enema RECTAL 01/29/20 05:01 133 ml ONETIME ONE Administration - Re-Assessments/Exams Free Text/Narrative Re-Assessment/Exam: 01/29/20 04:22 Digitally compaction was performed, and 4% topical lidocaine was applied to the rectal area and patient was given an enema. 01/29/20 06:22 After topical lidocaine was applied to the area and a tap water enema, patient had little results after 1 hour. A fleets enema was then tried and within 30 minutes she had good results. She was discharged and recommended MiraLAX on a regular basis until stools are soft and regular. Departure - Departure Time of Disposition: 06:31 Disposition: Home, Self-Care 01 Clinical Impression: Thrombosed external hemorrhoid Constipation Qualifiers: Constipation type: unspecified constipation type Qualified Code(s): K59.00 - Constipation, unspecified - Discharge Information Instructions: Constipation, Adult Referrals: Holly Ponce CNM [Primary Care Provider] - Forms: ED Department Discharge Care Plan Goals: Use MiraLAX daily until stools are soft and bowels are working normally. Consider rechecking at the clinic in 2 to 3 days if hemorrhoid is still bothersome, it can be surgically removed. Sepsis Event Note (ED) - Evaluation Sepsis Screening Result: No Definite Risk
[2020-01-29] MEDS: Lidocaine 2% Jelly 10 ML Urojet MUCMEM ONE (04:26)
[2020-01-29] MEDS: Sodium Phosphate,Monobasic/Sodium Phosphate,Dibasic Enema 133 ML Bottle RECTAL ONE (05:20)
== END 2020-01-29 06:31 | disposition home or self-care (01) ==
LOC: JP.ED 03:36
DX: K59.00 Constipation, unspecified (principal); K64.5 Perianal venous thrombosis; I10 Essential (primary) hypertension; I48.91 Unspecified atrial fibrillation; K21.9 Gastro-esophageal reflux disease without esophagitis; F41.9 Anxiety disorder, unspecified; Z88.1 Allergy status to other antibiotic agents; Z88.8 Allergy status to other drugs, medicaments and biological substances; Z91.041 Radiographic dye allergy status; Z88.5 Allergy status to narcotic agent; Z91.048 Other nonmedicinal substance allergy status; Z79.899 Other long term (current) drug therapy
CPT/HCPCS: 99283; A9270

== ENCOUNTER 2022-01-07 08:42 | Day surgery (SDC) | payer MEDICARE, OTHER ==
[2022-01-07] MEDS ORDERED: Sodium Chloride 0.9% 1,000 ML IV SCH (09:30)
[2022-01-07] MEDS ORDERED: Propofol 200 MG/20 ML SDV ONE (09:30)
[2022-01-07 12:03] VITALS: BP 120/71; PULSE 57
== END 2022-01-07 12:25 | disposition home or self-care (01) ==
LOC: JP.SDS 08:42
PROVIDERS: ATTEND Surgery
DX: K29.70 Gastritis, unspecified, without bleeding (principal); K21.9 Gastro-esophageal reflux disease without esophagitis; I10 Essential (primary) hypertension; Z88.6 Allergy status to analgesic agent; Z79.899 Other long term (current) drug therapy; Z88.5 Allergy status to narcotic agent; Z91.041 Radiographic dye allergy status; Z88.1 Allergy status to other antibiotic agents; Z88.4 Allergy status to anesthetic agent
CPT/HCPCS: 43239; J2704; J7030

== ENCOUNTER 2022-02-13 02:51 | Emergency (ER) | payer MEDICARE, OTHER ==
[2022-02-13 03:01] VITALS: BP 159/80; PULSE 71
== END 2022-02-13 04:18 | disposition home or self-care (01) ==
LOC: JP.ED 02:51
DX: I49.1 Atrial premature depolarization (principal); I10 Essential (primary) hypertension; Z88.6 Allergy status to analgesic agent; Z91.041 Radiographic dye allergy status; Z88.0 Allergy status to penicillin; Z91.048 Other nonmedicinal substance allergy status; Z79.899 Other long term (current) drug therapy; Z90.49 Acquired absence of other specified parts of digestive tract; Z90.710 Acquired absence of both cervix and uterus
CPT/HCPCS: 36415; 80048; 84443; 85025; 99285

== ENCOUNTER 2024-08-19 05:56 | Day surgery (SDC) | payer MEDICARE, OTHER ==
[2024-08-19 06:38] LABS: HEMATOCRIT 37.8 % (34.3-46.0); HEMOGLOBIN 12.1 g/dL (11.2-15.5); MEAN CORPUSCULAR HEMOGLOBIN 30.3 pg (31.6-35.5); MEAN CORPUSCULAR VOLUME 94.7 fL (81.4-99.0); RED BLOOD CELL COUNT 3.99 M/uL (3.77-5.24); WHITE BLOOD CELL COUNT,WBC 5.1 K/uL (3.2-11.0)
[2024-08-19 06:58] LABS: A/G RATIO 0.9 (1.2-2.2); ALANINE AMINOTRANSFERASE,ALT 21 U/L (12-78); ALBUMIN 3.3 g/dL (3.4-5.0); ALKALINE PHOSPHATASE 69 U/L (46-116); ANION GAP 10.6 mmol/L (5.0-14.0); ASPARTATE AMNIOTRANSFERASE,AST 14 U/L (15-37); BILIRUBIN TOTAL 0.7 mg/dL (0.2-1.0); BLOOD UREA NITROGEN,BUN 21 mg/dL (7-18); CALCIUM 8.7 mg/dL (8.5-10.1); CARBON DIOXIDE,CO2 25 mmol/L (21-32); CHLORIDE,CL 105 mmol/L (100-108); CREATININE 0.8 mg/dL (0.6-1.0); EST CRCL DRUG DOSING (CG) 51.03 mL/min; ESTIMATED GFR 77 mL/min (>60); GLUCOSE RANDOM 89 mg/dL (74-106); POTASSIUM,K 3.6 mmol/L (3.6-5.2); PROTEIN TOTAL,TP 6.9 g/dL (6.4-8.2); SODIUM,NA 141 mmol/L (140-148)
[2024-08-19] MEDS ORDERED: fentaNYL 100 MCG/2 ML SDV ONE (07:08)
[2024-08-19] MEDS ORDERED: Midazolam 1 MG/ML 2 ML SDV ONE (07:08)
[2024-08-19] MEDS ORDERED: Propofol 200 MG/20 ML SDV ONE ×2 (07:08→08:19)
[2024-08-19] MEDS ORDERED: Lidocaine 0.5% 50 ML SDV ONE (07:08)
[2024-08-19] MEDS: Lactated Ringers 1,000 ML IV SCH (07:26)
[2024-08-19] MEDS: Nozin Nasal Sanitizer NASBOTH SCH (07:26)
[2024-08-19] MEDS: ceFAZolin 1 GM in Premix Bag 1 BAG IV ONE (07:45)
[2024-08-19] MEDS: Bupivacaine 0.5% 50 ML MDV ONE (08:18)
[2024-08-19] MEDS: Acetaminophen/HYDROcodone 325-5 MG Tab PO ONE (10:30)
[2024-08-19 11:22] VITALS: BP 143/61; PULSE 53
[2024-08-19] MEDS ORDERED: Betamethasone Acetate/Betamethasone Sod Phosphate 6 MG/1 ML MDV IARTIC ONE (11:59)
== END 2024-08-19 11:31 | disposition home or self-care (01) ==
LOC: JP.SDS 05:56
PROVIDERS: ATTEND Specialist
DX: M06.9 Rheumatoid arthritis, unspecified (principal); M18.11 Unilateral primary osteoarthritis of first carpometacarpal joint, right hand
CPT/HCPCS: 01830; 25447; 36415; 80053; 85027; 93005; 93010; A9270; C1768; J0665; J0689; J2250; J2704; J3010; J7120